=== PATIENT | female | born 1975 | race Caucasian/White ===

== ENCOUNTER → 2020-09-13 08:30 | Outpatient (BNVA) | payer OTHER, SELFPAY | PROVIDERS: PCP Internal Medicine; Referring Provider Internal Medicine; Visit Provider Surgery | DX: E66.9 Obesity, unspecified (principal); Z68.36 Body mass index [BMI] 36.0-36.9, adult | CPT/HCPCS: 99202 ==

== ENCOUNTER 2020-09-14 08:43 | Outpatient (REF) | payer OTHER, SELFPAY ==
--- NOTE | ~2020-09-14 | XR_ITS ---
EXAMINATION: XR CHEST CLINICAL INFORMATION: Shortness of breath COMPARISON: None TECHNIQUE: 2 views of the chest were obtained. FINDINGS: No significant abnormality is noted involving the heart, lungs, mediastinum, bony thorax or soft tissues. XR/XR chest 2V IMPRESSION: Unremarkable examination.
--- NOTE | 2020-09-14 08:53 | ECG_ITS ---
Test Reason : SOB Blood Pressure : / mmHG Vent. Rate : 077 BPM Atrial Rate : 077 BPM P-R Int : 138 ms QRS Dur : 086 ms QT Int : 382 ms P-R-T Axes : 045 030 034 degrees QTc Int : 432 ms Normal sinus rhythm Normal ECG No previous ECGs available Referred By: Michelle Mc Electronically Signed By:TINO MONTERO
[2020-09-14 09:21] LABS: MANUAL DIFF FLAG NO
[2020-09-14 09:24] LABS: Basophils Absolute Auto 0.1 X10*3/uL (0.0-0.2); Basophils Percent Auto 0.7 % (0-2); Eosinophils Absolute Auto 0.3 X10*3/uL (0.0-0.4); Eosinophils Percent Auto 4.3 % (0-4); Hemoglobin 14.1 g/dl (12.0-16.0); Imm Gran Abs Auto 0.05 X10*3/uL (0.00-0.03); Imm Gran Pct Auto 0.7 % (0.0-0.4); Lymphocytes Absolute Auto 1.7 X10*3/uL (1.2-4.9); Lymphocytes Percent Auto 22.5 % (20-40); Mean Corpuscular Hemoglobin 29.2 pg (27.0-33.0); Mean Corpuscular Volume 91.1 fL (80-98); Mean Platelet Volume 11.1 fL (9.4-12.3); Monocytes Absolute Auto 0.5 X10*3/uL (0.1-1.2); Monocytes Percent Auto 5.9 % (2-11); Neutrophils Percent Auto 65.9 % (45-73); Platelet Count 258 X10*3/uL (160-400); Red Blood Count 4.83 X10*6/uL (4.20-5.50); Red Cell Distribution Width 13.4 % (11.0-16.0); White Blood Count 7.6 X10*3/uL (4.8-10.8)
[2020-09-14 09:53] LABS: Estimated Average Glucose 100 mg/dL; Hemoglobin A1c % 5.1 %
[2020-09-14 09:57] LABS: Alanine Aminotransferase 15 U/L (0-31); Albumin Level 4.2 g/dL (3.5-5.0); Alkaline Phosphatase 100 U/L (39-117); Anion Gap 12 (12-20); Aspartate Amino Transferase 11 U/L (5-31); Bilirubin Total 0.4 mg/dL (0.0-1.0); Blood Urea Nitrogen 10 mg/dL (9-16); C Reactive Protein 0.25 mg/dL (< or = 0.50); Calcium 9.4 mg/dL (8.4-10.2); Carbon Dioxide 26 mmol/L (22-29); Chloride 109 mmol/L (96-108); Cholesterol 211 mg/dL; Estimated Glomerular Filt Rate > 60; Glucose Fasting 102 mg/dL (60-99); HDL Cholesterol 37 mg/dL; Iron 79 mcg/dL (30-160); LDL Cholesterol Calculated 152 mg/dl; Percent Iron Saturation 28 % (15-50); Potassium 4.8 mmol/L (3.3-5.1); Sodium 142 mmol/L (135-145); Total Iron Binding Capacity 279 mcg/dL (228-428); Total Protein 7.1 g/dL (6.5-8.0); Triglycerides 114 mg/dL; Unsaturated Iron Binding 200 ug/dL
[2020-09-14 10:19] LABS: Thyroid Stimulating Hormone 0.62 uIU/mL (0.32-4.0); Vitamin D 25-OH Total 22.3 ng/mL (>30)
[2020-09-14 10:38] LABS: Vitamin B12 270 pg/mL (200-900)
[2020-09-17 16:27] LABS: Calcium (PTHI) 9.3 mg/dL (8.6-10.2); PTHI 45 pg/mL (14-64)
[2020-09-18 13:27] LABS: Zinc 68 mcg/dL (60-130)
[2020-09-19 14:56] LABS: Vitamin A 39 mcg/dL (38-98); Vitamin B1 <6 nmol/L (8-30)
== END 2020-09-14 08:44 | disposition home or self-care (01) ==
LOC: HO.XRAY 08:43
PROVIDERS: Visit Provider Surgery
DX: Z01.818 Encounter for other preprocedural examination (principal); R06.02 Shortness of breath; K91.2 Postsurgical malabsorption, not elsewhere classified; Z90.3 Acquired absence of stomach [part of]
CPT/HCPCS: 36415; 71046; 80053; 80061; 82306; 82607; 83036; 83540; 83970; 84425; 84443; 84590; 84630; 85025; 86140; 93005

== ENCOUNTER → 2020-09-25 08:10 | Outpatient (BNVA) | payer OTHER, SELFPAY | PROVIDERS: PCP Internal Medicine; Visit Provider Physician Assistant ==

== ENCOUNTER → 2020-09-26 08:55 | Outpatient (BNVA) | payer OTHER, SELFPAY | PROVIDERS: PCP Internal Medicine; Referring Provider Internal Medicine; Visit Provider Physician Assistant ==

== ENCOUNTER 2020-09-27 08:46 | Outpatient (REF) | payer OTHER, SELFPAY ==
[2020-09-28 12:22] LABS: H Pylori Breath Test DETECTED (NOT DETECTED)
== END 2020-09-27 08:47 | disposition home or self-care (01) ==
LOC: HO.LNP 08:46
PROVIDERS: Surgery; PCP Internal Medicine; Visit Provider Physician Assistant
DX: Z01.818 Encounter for other preprocedural examination (principal)
CPT/HCPCS: 83013; 99211

== ENCOUNTER → 2020-10-10 08:16 | Outpatient (BNVA) | payer OTHER, SELFPAY | PROVIDERS: PCP Internal Medicine; Visit Provider Dietitian, Registered | DX: E66.9 Obesity, unspecified (principal); Z68.35 Body mass index [BMI] 35.0-35.9, adult | CPT/HCPCS: 97802 ==

== ENCOUNTER 2020-10-19 10:01 | Outpatient (REF) | payer OTHER, SELFPAY ==
[2020-10-19 13:48] LABS: Vitamin D 25-OH Total 49.3 ng/mL (>30)
[2020-10-24 14:41] LABS: Vitamin B1 11 nmol/L (8-30)
== END 2020-10-19 10:02 | disposition home or self-care (01) ==
LOC: HO.LAB 10:01
PROVIDERS: PCP Internal Medicine; Visit Provider Surgery
DX: Z01.818 Encounter for other preprocedural examination (principal); E51.9 Thiamine deficiency, unspecified; E55.9 Vitamin D deficiency, unspecified; E66.9 Obesity, unspecified; F17.200 Nicotine dependence, unspecified, uncomplicated; Z68.35 Body mass index [BMI] 35.0-35.9, adult; Z79.899 Other long term (current) drug therapy; Z71.3 Dietary counseling and surveillance
CPT/HCPCS: 36415; 82306; 84425; 99212

== ENCOUNTER 2020-11-05 15:00 | Emergency (ER) | payer OTHER, SELFPAY ==
--- NOTE | ~2020-11-05 | XR_ITS ---
EXAMINATION: XR LUMBOSACRAL SPINE CLINICAL INFORMATION: Lower back pain. COMPARISON: None TECHNIQUE: Three views of the lumbosacral spine. FINDINGS: There is normal lumbar lordosis. The vertebral heights, alignment and is normal. There is loss of L3-4, L4-5 and L5-S1 disc heights. The SI joints are symmetrical and normal. No visible acute fracture, dislocation or lytic process seen. There is mild endplate spondylosis L2-3 through L5-S1 disc levels. No visible acute fracture or dislocation seen. XR/XR lumbar spine 2-3V IMPRESSION: Mild degenerative disc changes L3-4 through L5-S1 disc levels. There is mild endplate spondylosis dorsal spine.
[2020-11-05 15:29] VITALS: BP 143/91; PULSE 79; RESP 16; TEMP 36.7; O2SAT 98; BMI 34.6
--- NOTE | 2020-11-05 18:57 | ED.BACK ---
HPI - Back Pain/Injury General Chief Complaint: Back Pain/Injury Stated Complaint: BACK INJ AT WORK Time Seen by Provider: 11/05/20 19:33 Source: patient Mode of arrival: ambulatory Limitations: no limitations History of Present Illness HPI Narrative: 44-year-old female presents with lower lumbar pain after lifting heavy boxes while at work. She does not describe any symptoms indicating cauda equina, but states that the pain radiates down to her left leg into her toes. MD elicited complaint: back pain Onset (ago): week(s) (1) Timing: constant Severity: moderate Similar Symptoms Previously: No Quality: aching, spasming and throbbing Location: lumbar spine Radiation: left upper leg and left leg below the knee Exacerbating factors: movement and lifting Relieving factors: none Associated symptoms: denies other symptoms Treatments prior to arrival: NSAIDS Work related injury: Yes Related Data Home Medications Medication Instructions Recorded Confirmed acetaminophen 500 mg tablet 500 mg PO Q6H PRN 09/13/20 10/19/20 albuterol sulfate 90 mcg/actuation 2 puff INHALATION Q4H PRN 09/13/20 10/19/20 aerosol inhaler fluticasone propionate 50 2 spray INTRANASAL DAILY 09/13/20 10/19/20 mcg/actuation nasal spray,suspension lisinopril 10 mg tablet 10 mg PO DAILY 09/13/20 10/19/20 ondansetron HCl 4 mg tablet 400f8 mg PO Q8H PRN 09/13/20 10/19/20 tramadol 50 mg tablet 50 mg PO Q6H PRN 09/13/20 10/19/20 trazodone 100 mg tablet 100 mg PO BEDTIME PRN 09/13/20 10/19/20 Previous Rx's Medication Instructions Recorded thiamine HCl (vitamin B1) 100 mg 100 mg PO DAILY #30 tab 10/19/20 tablet cyclobenzaprine 10 mg tablet 10 mg PO TID PRN #14 tab 11/05/20 Allergies Allergy/AdvReac Type Severity Reaction Status Date / Time aspirin [ASA] Allergy Unknown DIFF Verified 11/05/20 20:14 BREATHING Penicillins [PENICILLINS] Allergy Unknown DIFF Verified 11/05/20 20:14 BREATHING Review of Systems Review of Systems: Constitutional: No Weight loss, No Fever, No Chills, ENT/Mouth: No Hearing loss, No Ear Pain, No Nasal Congestion, No Sinus Pain, No Hoarseness, No sore throat, No Rhinorrhea, No Swallowing Difficulty Cardiovascular: No Chest Pain, No SOB Respiratory: No Cough, No Dyspnea Gastrointestinal: No Nausea, No Vomiting, No Diarrhea, No abdominal Pain, No Hematochezia, No Melena Genitourinary: No Dysuria, No Urinary Frequency, No Hematuria, No Urinary Incontinence, Musculoskeletal: positive back pain Skin: No Skin Lesions, No rash Neuro: No Weakness, No Numbness, No Paresthesias, no loss of bowel or bladder incontinence, no saddle anesthesia Yes all other systems are reviewed and are negative [facility] Past Medical History Attestation statement: The following information was validated with the patient. Source: old records reviewed Medical History Asthma Depression History of breast cancer History of cerebrovascular accident (CVA) in adulthood History of uterine cancer HTN (hypertension) Hypercholesterolemia Hypothyroidism Surgical History History of endoscopy History of total abdominal hysterectomy History of tubal ligation Hx of breast surgery Hx of colonoscopy Family History Family History Mother Hypertension Thyroid condition Father Diabetes Hypertension Mental and behavioral problem Heart problem Sister No problems noted. Sister No problems noted. Sister No problems noted. Sister No problems noted. Sister No problems noted. Sister No problems noted. Brother No problems noted. Brother No problems noted. Brother No problems noted. Brother No problems noted. Brother No problems noted. Brother No problems noted. Brother No problems noted. Brother No problems noted. Brother No problems noted. Brother No problems noted. Brother No problems noted. Son Asthma Son Asthma Daughter Thyroid condition Daughter No problems noted. Social History Social History Alcohol intake: former Patient Tobacco Use Status: Current everyday Tobacco user Cigarettes Per Day: 1 Years Smoked: 32 Advance Directives: No Physical Exam Vital Signs: Vital Signs: Last Vital Signs Temp 98.0 F 11/05/20 15:29 Pulse 75 11/05/20 20:00 Resp 16 11/05/20 20:00 BP 139/75 11/05/20 20:00 Pulse Ox 96 11/05/20 20:00 Body Mass Index 34.6 Appearance: Alert. Oriented X3. No acute distress. Eyes: Pupils equal, round and reactive to light. ENT: Pharynx normal. Neck: Normal inspection. Neck supple. No vertebral tenderness, no spinal tenderness, no step-offs noted. CVS: Normal heart rate and rhythm. Pulses normal. Respiratory: No respiratory distress. Breath sounds normal. Abdomen: Soft and nontender. Musculoskeletal: Palpable muscle spasms to lower lumbar. Skin: Skin warm and dry. Normal skin color. Normal skin turgor. Extremities: No lower extremity edema. Strength 5/5 to all extremities. Gait well balanced well coordinated. Neuro: No motor deficit. No sensory deficit. Cranial nerves 2-12 intact. Course Course Course Narrative: 44-year-old female presents with lumbar pain with sciatica from a lifting injury while at work. Will order x-rays. No indication of cauda equina, neurovascularly intact, brisk capillary with equal pedal pulses. Lumbar x-rays are negative for acute findings. Will treat with muscle relaxers and have patient follow up with work connection. Patient verbalized understanding of and agrees to plan of care discharge home. MDM - Back Pain/Injury Differential Diagnosis Differential diagnosis: Likely lumbar radiculopathy, sciatica and strain of lumbar region Medical Records Attestation: I reviewed the patient's medical records. Imaging Data Lumbar x-ray: Attestation: I personally reviewed and interpreted this imaging study as follows: Radiologist's impression: EXAMINATION: XR LUMBOSACRAL SPINE CLINICAL INFORMATION: Lower back pain. COMPARISON: None TECHNIQUE: Three views of the lumbosacral spine. FINDINGS: There is normal lumbar lordosis. The vertebral heights, alignment and is normal. There is loss of L3-4, L4-5 and L5-S1 disc heights. The SI joints are symmetrical and normal. No visible acute fracture, dislocation or lytic process seen. There is mild endplate spondylosis L2-3 through L5-S1 disc levels. No visible acute fracture or dislocation seen. XR/XR lumbar spine 2-3V IMPRESSION: Mild degenerative disc changes L3-4 through L5-S1 disc levels. There is mild endplate spondylosis dorsal spine. Discharge Plan Discharge Clinical Impression: Strain of lumbar region Patient Disposition: Home, Self-Care Instructions: Low Back Strain (ED), R.I.C.E. Treatment (ED), Lower Back Exercises (ED) Additional Instructions: You were evaluated for a injury sustained at work. You have spondylosis, lumbar strain and muscle spasms. Your x-rays are negative for fracture. Please use cyclobenzaprine as needed for muscle spasms. This medication is a muscle relaxer. Uses medication cautiously as this may cause drowsiness, decreased reaction time, an increased risk for falls. Do not drive or operate machinery while taking this medication. Follow-up with primary care provider and/or work connection as needed. Thank you for choosing this emergency department for evaluation. Please follow-up with primary care physician as needed. Return to the emergency department for any new, concerning, or worsening symptoms. Prescriptions: New cyclobenzaprine 10 mg tablet 10 mg PO TID PRN (Reason: muscle spasm) Qty: 14 RF: 0 No Action lisinopril 10 mg tablet 10 mg PO DAILY RF: 0 fluticasone propionate 50 mcg/actuation spray,suspension 2 spray intranasal DAILY RF: 0 albuterol sulfate 90 mcg/actuation HFA aerosol inhaler 2 puff inhalation Q4H PRN (Reason: wheezing) RF: 0 acetaminophen 500 mg tablet 500 mg PO Q6H PRN (Reason: pain) RF: 0 ondansetron HCl 4 mg tablet 400f8 mg PO Q8H PRN (Reason: nausea) RF: 0 tramadol 50 mg tablet 50 mg PO Q6H PRNRF: 0 trazodone 100 mg tablet 100 mg PO BEDTIME PRNRF: 0 thiamine HCl (vitamin B1) 100 mg tablet 100 mg PO DAILY Qty: 30 RF: 0 Stand Alone Forms: Work/School Release Interventions: ED Discharge Assessment Last Done: 11/05/20 20:46 Discharge Date/Time: 11/05/20 20:47
[2020-11-05 20:00] VITALS: BP 139/75; PULSE 75; RESP 16; O2SAT 96
[2020-11-05] MEDS: Cyclobenzaprine HCl 10 MG TABLET PO (20:14)
[2020-11-05] MEDS: Ketorolac Tromethamine 60 MG/2 ML VIAL IM (20:15)
== END 2020-11-05 20:47 | disposition home or self-care (01) ==
PROVIDERS: Emergency Provider Internal Medicine; PCP Internal Medicine
DX: S39.012A Strain of muscle, fascia and tendon of lower back, initial encounter (principal); X50.0XXA Overexertion from strenuous movement or load, initial encounter; Y93.9 Activity, unspecified; Y92.9 Unspecified place or not applicable; Y99.0 Civilian activity done for income or pay; F17.200 Nicotine dependence, unspecified, uncomplicated; Z71.6 Tobacco abuse counseling; Z79.899 Other long term (current) drug therapy
CPT/HCPCS: 72100; 96372; 99284; J1885

== ENCOUNTER → 2020-11-14 08:12 | Outpatient (BNVA) | payer OTHER, SELFPAY | PROVIDERS: PCP Internal Medicine; Visit Provider Dietitian, Registered | DX: E66.9 Obesity, unspecified (principal) | CPT/HCPCS: 97803 ==

== ENCOUNTER → 2020-11-23 13:48 | Outpatient (BNVA) | payer OTHER, SELFPAY | PROVIDERS: PCP Internal Medicine; Visit Provider Surgery | DX: E66.9 Obesity, unspecified (principal); Z68.33 Body mass index [BMI] 33.0-33.9, adult | CPT/HCPCS: 99212 ==

== ENCOUNTER → 2020-12-12 09:56 | Outpatient (BNVA) | payer OTHER, SELFPAY | PROVIDERS: PCP Internal Medicine; Referring Provider Internal Medicine; Visit Provider Surgery | DX: E66.9 Obesity, unspecified (principal); Z68.33 Body mass index [BMI] 33.0-33.9, adult | CPT/HCPCS: 99212 ==

== ENCOUNTER 2021-01-11 14:46 | Outpatient (REF) | payer OTHER, SELFPAY ==
[2021-01-13 11:08] LABS: H Pylori Breath Test Negative (Negative)
== END 2021-01-11 14:47 | disposition home or self-care (01) ==
LOC: HO.LNP 14:46
PROVIDERS: Surgery; PCP Internal Medicine; Referring Provider Internal Medicine; Visit Provider Physician Assistant Surgical
DX: Z01.818 Encounter for other preprocedural examination (principal); A04.8 Other specified bacterial intestinal infections; E66.9 Obesity, unspecified; Z68.31 Body mass index [BMI] 31.0-31.9, adult; F17.210 Nicotine dependence, cigarettes, uncomplicated
CPT/HCPCS: 83013; 99212

== ENCOUNTER → 2021-02-05 08:12 | Outpatient (BNVA) | payer OTHER, SELFPAY | PROVIDERS: PCP Internal Medicine; Referring Provider Surgery; Visit Provider Dietitian, Registered ==

== ENCOUNTER → 2021-02-26 08:07 | Outpatient (BNVA) | payer OTHER, SELFPAY | PROVIDERS: PCP Internal Medicine; Visit Provider Dietitian, Registered ==

== ENCOUNTER 2021-02-27 08:15 | Outpatient (REF) | payer OTHER, SELFPAY ==
--- NOTE | ~2021-02-27 | US_ITS ---
EXAMINATION: US COMPLETE ABDOMEN WITH LIVER ELASTOGRAPHY CLINICAL INFORMATION: Obesity COMPARISON: None. TECHNIQUE: Real-time imaging of the abdominal viscera. Noninvasive ultrasound liver fibrosis assessment is performed using Dianna ElastPQ point quantification shear wave elastography (pSWE) with a C5-2 MHz transducer. Multiple elastography samples are obtained. FINDINGS: PANCREAS: Normal. The visualized pancreatic head and body are normal in appearance. The remainder of the pancreas is obscured from visualization by the overlying bowel gas. ABDOMINAL AORTA: The proximal, middle, and distal aortic segments are normal in caliber. INFERIOR VENA CAVA: Visualized portions are normal. LIVER: Normal in morphology and size but diffuse increased echogenicity favoring hepatic steatosis. No focal lesion or intrahepatic biliary duct dilatation. The right lobe measures 15.5 cm in length. The left lobe measures 11.3 cm in length. Portal flow is hepatopedal Shear wave liver elastography median stiffness is 1.42 m/s (reference: normal median stiffness is 1.3 m/s or less). IQR/median stiffness to assess sampling precision is 0.2 (reference: good quality data set is IQR/median stiffness of 0.15 or less). GALLBLADDER: Normal. The gallbladder is physiologically distended without evidence of stones, sludge, polyps, wall thickening or pericholecystic fluid. COMMON BILE DUCT: Normal in caliber measuring 0.3 cm in diameter. RIGHT KIDNEY: Questionable tiny stone the millimeters with out obstruction versus a dystrophic calcification. No focal parenchymal lesions. The kidney measures 11.6 cm in maximum dimension. LEFT KIDNEY: Normal. No hydronephrosis. No renal calculi or focal parenchymal lesions. The kidney measures 11.7 cm in maximum dimension. SPLEEN: Normal. The spleen measures 10.7 cm in maximum dimension. FREE FLUID: None. US/US abdomen comp w elastography IMPRESSION: 1. Changes on Elastography rules out compensated advanced chronic liver disease. 2. Changes of hepatic steatosis. No discrete lesion. REFERENCE: Society of Radiologists in Ultrasound Liver Stiffness Thresholds (2020): LIVER STIFFNESS THRESHOLDS: *Liver Stiffness equal or less than 1.3 m/s: High probability of being normal. *Liver Stiffness less than 1.7 m/s: In the absence of other known clinical signs, rules out compensated advanced chronic liver disease. *Liver Stiffness 1.7-2.1 m/s: Suggestive of compensated advanced chronic liver disease but need further test for confirmation. *Liver Stiffness over 2.1 m/s: Rules in compensated advanced chronic liver disease. *Liver Stiffness over 2.4 m/s: Suggestive of clinically significant portal hypertension. QUALITY OF DATA SET: *IQR/Median value equal or less than 0.15 implies a quality data set. *IQR/Median value over 0.15 implies a poor quality data set. SIGNIFICANT CHANGE FROM PRIOR EXAM: Significant change if liver stiffness measurement is 10% or greater from prior exam. OTHER CONSIDERATIONS: The stage of liver fibrosis may be overestimated in the setting of acute hepatitis, liver inflammation, elevated liver function tests, hepatic vascular congestion, obstructive cholestasis, non-fasting state, and infiltrative diseases such as amyloidosis and lymphoma. In some patients with NAFLD, the liver stiffness thresholds for compensated advanced chronic liver disease may be lower. In causes other than viral hepatitis and NAFLD, liver stiffness thresholds are not well established.
== END 2021-02-27 08:16 | disposition home or self-care (01) ==
LOC: HO.US 08:15
PROVIDERS: Visit Provider Physician Assistant Surgical
DX: E66.9 Obesity, unspecified (principal); E78.00 Pure hypercholesterolemia, unspecified; E03.9 Hypothyroidism, unspecified; F17.210 Nicotine dependence, cigarettes, uncomplicated; U07.0 Vaping-related disorder; Z68.31 Body mass index [BMI] 31.0-31.9, adult; Z88.6 Allergy status to analgesic agent; Z88.0 Allergy status to penicillin; Z79.899 Other long term (current) drug therapy; Z82.49 Family history of ischemic heart disease and other diseases of the circulatory system; Z81.8 Family history of other mental and behavioral disorders; Z83.3 Family history of diabetes mellitus; Z53.29 Procedure and treatment not carried out because of patient's decision for other reasons
CPT/HCPCS: 76705; 76981; 99212

== ENCOUNTER → 2021-03-05 08:06 | Outpatient (BNVA) | payer OTHER, SELFPAY | PROVIDERS: PCP Internal Medicine; Visit Provider Dietitian, Registered | DX: E66.9 Obesity, unspecified (principal); Z68.30 Body mass index [BMI] 30.0-30.9, adult | CPT/HCPCS: 97803 ==

== ENCOUNTER → 2021-03-11 13:32 | Outpatient (BNVA) | payer OTHER, SELFPAY | PROVIDERS: PCP Internal Medicine; Referring Provider Internal Medicine; Visit Provider Surgery ==

== ENCOUNTER → 2021-03-14 11:45 | Outpatient (BNVA) | payer OTHER, SELFPAY | PROVIDERS: PCP Internal Medicine; Visit Provider Surgery ==

== ENCOUNTER 2021-03-29 08:12 | Outpatient (REF) | payer OTHER, SELFPAY ==
--- NOTE | ~2021-03-29 | FL_ITS ---
EXAMINATION: XR FLUOROSCOPY UPPER GI WITH AIR CLINICAL INFORMATION: Obesity COMPARISON: None TECHNIQUE: Upper GI was performed using thin and thick barium and effervescent granules. FINDINGS: Esophageal motility is normal. No esophageal reflux or hernia is seen. The stomach and duodenum are normal appearing. No fold thickening, ulcer, mass or stricture. FLUOROSCOPY TIME: 0.6 minutes DOSE AREA PRODUCT: 7.8 heck per centimeter squared. IMAGES: 16 saved fluoroscopic images. FL/FL upper GI w air IMPRESSION: Unremarkable examination.
== END 2021-03-29 08:13 | disposition home or self-care (01) ==
LOC: HO.XRAY 08:12
PROVIDERS: Visit Provider Physician Assistant Surgical
DX: E66.9 Obesity, unspecified (principal)
CPT/HCPCS: 74246

== ENCOUNTER → 2021-04-19 09:58 | Outpatient (BNVA) | payer OTHER, SELFPAY | PROVIDERS: PCP Internal Medicine; Referring Provider Internal Medicine; Visit Provider Physician Assistant Surgical ==

== ENCOUNTER → 2021-05-01 10:00 | Outpatient (BNVA) | payer OTHER, SELFPAY | PROVIDERS: PCP Internal Medicine; Referring Provider Internal Medicine; Visit Provider Surgery | DX: E66.9 Obesity, unspecified (principal); I10 Essential (primary) hypertension; Z68.32 Body mass index [BMI] 32.0-32.9, adult | CPT/HCPCS: 99212 ==

== ENCOUNTER → 2021-05-10 12:57 | Outpatient (BNVA) | payer OTHER, SELFPAY | PROVIDERS: PCP Internal Medicine; Referring Provider Internal Medicine; Visit Provider Surgery ==

== ENCOUNTER 2021-05-14 06:20 | Inpatient (IN) | payer OTHER, SELFPAY ==
[2021-05-08 07:54] LABS: MANUAL DIFF FLAG NO
[2021-05-08 08:12] LABS: Basophils Percent Auto 0.5 % (0-2); Eosinophils Absolute Auto 0.2 X10*3/uL (0.0-0.4); Eosinophils Percent Auto 3.7 % (0-4); Hemoglobin 13.9 g/dl (12.0-16.0); Imm Gran Abs Auto 0.02 X10*3/uL (0.00-0.03); Imm Gran Pct Auto 0.3 % (0.0-0.4); Lymphocytes Absolute Auto 1.6 X10*3/uL (1.2-4.9); Lymphocytes Percent Auto 24.8 % (20-40); Mean Corpuscular HGB Conc 32.3 g/dl (31.0-35.0); Mean Corpuscular Hemoglobin 29.4 pg (27.0-33.0); Mean Corpuscular Volume 91.1 fL (80.0-98.0); Mean Platelet Volume 10.9 fL (9.4-12.3); Monocytes Absolute Auto 0.4 X10*3/uL (0.1-1.2); Monocytes Percent Auto 6.7 % (2-11); Platelet Count 232 X10*3/uL (160-400); Red Blood Count 4.72 X10*6/uL (4.20-5.50); Red Cell Distribution Width 13.7 % (11.0-16.0); White Blood Count 6.3 X10*3/uL (4.8-10.8)
[2021-05-08 08:22] LABS: INTERNATIONAL NORM RATIO 1.2 (0.9-1.1); Prothrombin Time 13.1 SEC (9.9-13.0)
[2021-05-08 08:24] LABS: Partial Thromboplastin Time 37.1 SEC (24.1-38.0)
[2021-05-08 08:27] LABS: Estimated Average Glucose 100 mg/dL; Hemoglobin A1c % 5.1 %
[2021-05-08 08:44] LABS: Alanine Aminotransferase 18 U/L (0-31); Alkaline Phosphatase 87 U/L (39-117); Anion Gap 12 (12-20); Aspartate Amino Transferase 12 U/L (5-31); Bilirubin Total 0.7 mg/dL (0.0-1.0); Blood Urea Nitrogen 15 mg/dL (9-16); C Reactive Protein 0.65 mg/dL (< or = 0.50); Calcium 9.5 mg/dL (8.4-10.2); Carbon Dioxide 26 mmol/L (22-29); Chloride 106 mmol/L (96-108); Cholesterol 212 mg/dL; Estimated Glomerular Filt Rate > 60; Glucose Random 98 mg/dL (60-115); HDL Cholesterol 40 mg/dL; LDL Cholesterol Calculated 148 mg/dl; Potassium 4.1 mmol/L (3.3-5.1); Sodium 140 mmol/L (135-145); Total Protein 6.9 g/dL (6.5-8.0); Triglycerides 121 mg/dL
[2021-05-08 09:03] LABS: Insulin 16 uU/mL (2-29); TSH reflex Free T4 0.84 uIU/mL (0.32-4.0)
[2021-05-08 11:29] VITALS: BMI 31.9
--- NOTE | 2021-05-11 21:59 | MHC.SHP ---
Pre-Procedural Eval Section A Date of Service: 05/11/21 The patient is an INPATIENT: Yes The History & Physical has been completed within 30 days and I have reviewed it.: Yes Section B Chief Complaint: obesity Relevant Family History (Specify if Yes): No Relevant Social History: None Present Medications: None Medical History: No relevant PMH History of Previous Operations: No relevant previous surgery Allergies: Allergies Allergy/AdvReac Type Severity Reaction Status Date / Time aspirin [ASA] Allergy Unknown DIFF Verified 05/08/21 11:27 BREATHING Penicillins [PENICILLINS] Allergy DIFF Verified 05/08/21 11:27 BREATHING Review of Systems Sugical H&P ROS: Negative: Constitution, Cardiovascular, Respiratory, Neurological, Psychiatric, Hem-Onc, Allergic/Immunologic, Gastrointestinal, Genitourinary, Musculoskeletal, Integumentary, Endocrine and Eyes/Ears/Nose/Throat Exam Surgical H&P Exam: Normal: HEENT, Normal: Heart, Normal: Lungs, Normal: Extremities, Normal: Abdomen, Normal: Skin and Normal: Neurological Plan Diagnosis/Plan: Unchanged I have reviewed the history and physical and performed a pertinent physical examination on my patient. No changes have occurred unless specified.
[2021-05-13 12:43] LABS: COVID-19 Test Negative (Negative)
[2021-05-14] VITALS (12 sets, daily range): BP systolic 126–168; BP diastolic 78–92; PULSE 75–109; RESP 14–19; TEMP 36.7–37.3; O2SAT 94–100
[2021-05-14] MEDS: Lactated Ringers 1,000 ML 999 ML IV (06:47)
--- NOTE | 2021-05-14 07:00 | HO.ANESPROP2 ---
HPI - Anesthesia Eval Consult details Narrative: Morbid Obesity COUNTS INCLUDE 234 BEDS AT THE [facility] Active Problems Active Problems: All Active Problems (Updated 05/08/21 @ 11:28 by Lola Grullon RN) Obesity (Acute) Preoperative examination (Acute) Shortness of breath (Acute) BMI 36.0-36.9,adult (Acute) Vitamin D deficiency (Acute) Severe episode of recurrent major depressive disorder (Acute) H. pylori infection (Acute) Vitamin B1 deficiency (Acute) BMI 35.0-35.9,adult (Acute) BMI 33.0-33.9,adult (Acute) Obesity (BMI 30.0-34.9) (Acute) BMI 31.0-31.9,adult (Acute) BMI 32.0-32.9,adult (Acute) History of cerebrovascular accident (CVA) in adulthood (Acute) Hypercholesterolemia (Acute) History of breast cancer (Acute) Asthma (Acute) HTN (hypertension) (Acute) Past Medical History Medical History (Updated 05/08/21 @ 11:28 by Lola Grullon RN) Asthma Depression History of breast cancer History of cerebrovascular accident (CVA) in adulthood History of uterine cancer HTN (hypertension) Hypercholesterolemia Hypothyroidism PONV (postoperative nausea and vomiting) Family History Family History Mother Hypertension Thyroid condition Father Diabetes Hypertension Mental and behavioral problem Heart problem Sister No problems noted. Sister No problems noted. Sister No problems noted. Sister No problems noted. Sister No problems noted. Sister No problems noted. Brother No problems noted. Brother No problems noted. Brother No problems noted. Brother No problems noted. Brother No problems noted. Brother No problems noted. Brother No problems noted. Brother No problems noted. Brother No problems noted. Brother No problems noted. Brother No problems noted. Son Asthma Son Asthma Daughter Thyroid condition Daughter No problems noted. Family history of problems with anesthesia: No Surgical History Surgical History History of endoscopy History of total abdominal hysterectomy History of tubal ligation Hx of breast surgery Hx of colonoscopy History of Problems with Anesthesia: No Social History Social History Are you a primary rn acute care to a significant other at home: No Do you presently have visiting nurse or other home services: No Alcohol intake: former Patient Tobacco Use Status: Current everyday Tobacco user Tobacco use type: Smokeless Tobacco Cigarettes Per Day: 1 Years Smoked: 26 e-Cigarette/Vaping Use: Currently Using Use of substances other than those prescribed or required for medical reasons: No Have you been hit, kicked, punched, or otherwise hurt by someone within the past year? If so, by whom?: No Are you DNR?: No Advance Directives: No Advance Directives Information Provided: Yes (Mailed with Pre-op Instructions) Advance Directives on File: No Recently lost weight without trying: No How much weight loss: 34pounds or more Eating poorly because of decreased appetite: No Nutrition screen score: 4 Nutrition Risks: No Nutritional Risk Patient : No FDLMP: Hyst : No Poor oral hygiene: No Meds Allergies Allergy/AdvReac Type Severity Reaction Status Date / Time aspirin [ASA] Allergy Unknown DIFF Verified 05/08/21 11:27 BREATHING Penicillins [PENICILLINS] Allergy DIFF Verified 05/08/21 11:27 BREATHING Active Medications: Current Medications Levofloxacin (Levaquin) 500 mg in 100 mls @ 100 mls/hr IV PREOP ONE Stop: 05/14/21 07:18 Lactated Ringer's (Lr) 1,000 mls @ 999 mls/hr IV .Q1H1M [facility] Stop: 05/14/21 07:30 Last Admin: 05/14/21 06:47 Dose: 999 mls/hr Documented by: Lactated Ringer's (Lr) 1,000 mls @ 50 mls/hr IVCONT .Q20H [facility] Acetaminophen (Ofirmev) 1,000 mg in 100 mls @ 400 mls/hr IV PREOP ONE Stop: 05/14/21 07:13 Home Medications Medication Instructions Recorded Confirmed Last Taken Type acetaminophen 500 mg tablet 500 mg PO Q6H PRN 09/13/20 05/08/21 Unknown History albuterol sulfate 90 mcg/actuation 2 puff INHALATION Q4H PRN 09/13/20 05/08/21 Unknown History aerosol inhaler fluticasone propionate 50 2 spray INTRANASAL DAILY 09/13/20 05/08/21 Unknown History mcg/actuation nasal spray,suspension lisinopril 10 mg tablet 10 mg PO DAILY 09/13/20 05/08/21 Unknown History Exam Exam Date and Time: May 14, 2021 0700 Height,Weight and Vital Signs: Height 5 ft 7 in Weight 92.533 kg Last Vital Signs Temp 98.2 F 05/14/21 06:28 Pulse 88 05/14/21 06:28 Resp 18 05/14/21 06:28 BP 145/80 H 05/14/21 06:28 Pulse Ox 98 05/14/21 06:28 Pertinent Lab Results Pertinent Lab Results: Laboratory Tests 05/08/21 05/08/21 05/08/21 07:50 07:50 07:50 WBC 6.3 RBC 4.72 Hgb 13.9 Hct 43.0 MCV 91.1 MCH 29.4 MCHC 32.3 RDW 13.7 Plt Count 232 MPV 10.9 Immature Gran % (Auto) 0.3 Neut % (Auto) 64.0 Lymph % (Auto) 24.8 [place] % (Auto) 6.7 Eos % (Auto) 3.7 Baso % (Auto) 0.5 Lymph # (Auto) 1.6 [place] # (Auto) 0.4 Eos # (Auto) 0.2 Baso # (Auto) 0.0 Abs Immat Gran (auto) 0.02 Absolute Neuts (auto) 4.0 Absolute Nucleated RBC 0.000 Nucleated RBC % (auto) 0.0 PT 13.1 H INR 1.2 H APTT 37.1 Sodium 140 Potassium 4.1 Chloride 106 Carbon Dioxide 26 Anion Gap 12 BUN 15 Creatinine 0.67 Estim Creat Clear Calc TNP Estimated GFR > 60 Random Glucose 98 Estimat Average Glucose Hemoglobin A1c % Insulin Level 16 Calcium 9.5 Total Bilirubin 0.7 AST 12 ALT 18 Alkaline Phosphatase 87 C-Reactive Protein 0.65 H Total Protein 6.9 Albumin 4.0 Triglycerides 121 Cholesterol 212 LDL Cholesterol, Calc 148 HDL Cholesterol 40 TSH 0.84 COVID-19 ([facility]) COVID-19 Clin Com Blood Type Antibody Screen 05/08/21 05/08/21 05/13/21 07:50 07:50 12:10 WBC RBC Hgb Hct MCV MCH MCHC RDW Plt Count MPV Immature Gran % (Auto) Neut % (Auto) Lymph % (Auto) [place] % (Auto) Eos % (Auto) Baso % (Auto) Lymph # (Auto) [place] # (Auto) Eos # (Auto) Baso # (Auto) Abs Immat Gran (auto) Absolute Neuts (auto) Absolute Nucleated RBC Nucleated RBC % (auto) PT INR APTT Sodium Potassium Chloride Carbon Dioxide Anion Gap BUN Creatinine Estim Creat Clear Calc Estimated GFR Random Glucose Estimat Average Glucose 100 Hemoglobin A1c % 5.1 Insulin Level Calcium Total Bilirubin AST ALT Alkaline Phosphatase C-Reactive Protein Total Protein Albumin Triglycerides Cholesterol LDL Cholesterol, Calc HDL Cholesterol TSH COVID-19 ([facility]) Negative COVID-19 Clin Com See Note Blood Type O Positive Antibody Screen NEGATIVE Airway Mallampati Class: II TM Dist: >3cm Neck ROM: Full Loose/Missing/Broken Teeth: No Heart: [id number] Lungs: cta b/l Assessment and Plan Assessment Anesthesia Assessment: Anesthesia Plan Discussed and Chart Reviewed Final Anesthetic Review Family History of Problems with Anesthesia: No History of Problems with Anesthesia: No NPO: Yes ASA Class: III Final Preanesthetic Review: No Changes in Pt Med Stat, Meds/Allgs Chart Reviewed, Consent Obtained/Reviewed and Anes Risks/Benef Reviewed Patient Risk: Intermediate Procedure Risk: Intermediate Assessment/Block/Sedation in SS: Assess/Block/Sedation-SS Anesthetic Plan Anesthetic Plan: GA and Agree w/ Assess. and Plan Disposition: Standard PACU
[2021-05-14] MEDS: levoFLOXacin/D5W 500 MG/100 ML PIGGYBACK 100 MG IV (07:55)
--- NOTE | 2021-05-14 10:46 | P.BOP_ITS ---
Brief Operative Note Date of Service: 05/14/21 Pre-op diagnosis: Severe obesity with comorbidities (see below) Post-op diagnosis: same Procedure: INITIAL PATIENT BMI ON PRESENTATION AT OUR OFFICE: 36.2 kg/m2 LAST BMI BEFORE SURGERY: 31.6 kg/m2 COMORBIDITIES: CVA, hypertension, GERD, asthma, back pain, history of breast cancer, liver steatosis ?The patient presented to the Weight Management Program with significant obesity that was negatively impacting the patient's comorbidities as listed above.? The program is a phased program with a special focus on preoperative medical weight management to promote substantial weight loss and prepare the patients for the second phase of the program: bariatric surgery. The patient participated in an intensive weekly lifestyle ?intervention and exercise program during which the patient ?has lost between the initial office visit and the last preoperative visit 22.6lbs, or 10.07% of initial actual body weight. It was deemed appropriate for the patient to now have bariatric surgery. In light of the current Covid-19 pandemic and the well documented strong association of obesity and increased risk of worse outcomes if infected with Covid-19 (REFERENCES: https://pubmed.ncbi.nlm.nih.gov/13604141/ ,? https://pubmed.ncbi.nlm.nih.gov/50469843/ ), any delay in undergoing bariatric surgery may lead to the patient's worsening health condition and increased?risk of more severe Covid-19 disease if infected. In addition a recent?study from [facility] published in [facility] on 03/04/2021 ([email or web address]) found that, among patients with obesity, substantial weight loss achieved with surgery was associated with improved outcomes of COVID-19 infection. The findings suggest that obesity can be a modifiable risk factor for the severity of COVID-19 infection. In addition, the patient met the BMI-criteria for bariatric surgery based on the BMI on initial presentation. The patient should not be penalized for achieving such weight loss because ?it is not sustainable long-term without surgical intervention and it was achieved in preparation for bariatric surgery ?under my direction and based on my published research ([email or web address]).[email or web address] and? https://www.soard.org/article/[email or web address](00)51330-X/pdf ) ?that a 10% preoperative weight loss improves long-term weight loss after surgery and reduces perioperative complications.? Insurance carriers such as [facility] have endorsed my recommendations ?and have included in their policies criteria to include a 10% preoperative weight loss requirement. PROCEDURE: Esophago-gastroscopy, laparoscopic repair of incarcerated diaphragmatic hernia, laparoscopic lysis of adhesions, laparoscopic sleeve gastrectomy and laparoscopic gastropexy INDICATIONS: This is a 45 year-old female who was electively scheduled for laparoscopic, possibly open sleeve gastrectomy. The risks and complications of the procedure were discussed with the patient in advance, particularly the possibility of ; pulmonary embolism; staple line leak; bleeding; GERD; cardiac, pulmonary, or renal complications; as well as long-term problems such as insufficient weight loss, vitamin deficiency, strictures, or ulcers. The patient understood all the risks, and was in agreement to proceed with surgery. DESCRIPTION OF PROCEDURE: After informed consent was obtained from the patient, the patient was given preoperative antibiotics, and was transferred to the operating room. After successful induction of general anesthesia, pneumatic compression devices were placed on both lower extremities. An upper endoscopy was performed next. The oropharynx and esophagus appeared to be within normal limits. There was no diaphragmatic hernia present consistent with the findings of the preoperative upper GI. The stomach was entered. Then after all fluid and air were suctioned and the stomach was fully decompressed, the scope was withdrawn and secured in the mid esophagus. The patient was then prepped and draped in the usual sterile manner, and abdominal access was established at the right upper quadrant with the Damian technique. A 12 mm blunt port was inserted, and the abdomen was insufflated with CO2 to a pressure of 15 mmHg. Under direct visualization, additional ports were placed, specifically two 5 mm Versi-step ports to the left upper quadrant, and a 5 mm Versi-Step port to the right upper quadrant. 1% lidocaine plain was used to infiltrate all port sites as well as all fascia defects. Using the EndoClose suture passer device, I placed a #1 Polysorb tie across the falciform ligament in order to retract it up against the abdominal wall and prevent injury of the ligament with our instruments during the procedure. Following that, the patient was placed in a steep reverse Trendelenburg position. An additional 5 mm port was placed to the right flank for the Mediflex retractor that was used to retract the left lobe of the liver. The gastro-esophageal fat pad was opened with the ultrasonic device (Thunderbeat, Olympus) and the anterior esophagus and hiatus were exposed. The angle of His was opened with the ultrasonic device the fundus of the stomach from any diaphragmatic and splenic attachments. I then opened the gastrocolic ligament between the transverse colon and the greater curvature of the stomach with the ultrasonic device to enter the lesser sac and facilitate the ligation of the short gastric vessels. I started at a mid-point along the greater curvature and using the Thunderbeat, all short gastric vessels were divided all the way to the angle of His until the left karla was completely dissected at its entirety. I then divided the gastro-colic ligament distally to a distance of about 3-4 cm proximal to the pylorus. There were extensive congenital adhesions between the pancreas and posterior gastric wall. Those were lysed completely with the ultrasonic device. Adhesiolysis took approximately 45 min to complete. The stomach was then divided transversely with one Endo MICHELLE-45 purple, one MICHELLE- 45 orange load and five MICHELLE-60 articulating orange loads using the AEON stapler and loads. Every effort was made that the gastric sleeve had a tubular shape and an even caliber throughout. Once the sleeve resection was completed, the staple line of the gastric sleeve was reinforced with Hemoclips. The resected stomach was retrieved without difficulty from the Damian port. A gastropexy was then performed in order to prevent postoperative GERD and partial gastric volvulus. Several interrupted 2.0 Surgidac sutures were placed between the sleeve's staple line and the previously divided greater omentum and gastro-colic ligament using the Endo-Stitch device. ?An upper endoscopy was performed. There was no narrowing at the GE junction. The scope was easily advanced all the way to the pylorus which was clearly visualized. There was no narrowing anywhere and the sleeve's caliber was even throughout. The sleeve's staple line was inspected and there was no evidence of ischemia, bleeding or dehiscence. At that point the gastroscope was withdrawn from the patient?s mouth while we were decompressing the bowel and the stomach from any remaining air. I looked into the lesser sac to see how the sleeve was situating and it was situating well. There was no bleeding from the staple line, spleen, or short gastric vessels. The Mediflex retractor was removed, and the undersurface of the liver was inspected and there was no bleeding. The patient was placed in supine position. I closed the fascial defect of the 12 mm port site with a figure of eight #1 Polysorb suture. Then 100 cc 0.25 % Marcaine plain with 10 mg of Dexamethasone were used to infiltrate the fascial closure as well as all skin incisions. At this point, the abdomen was deflated, all ports were removed under direct vision, and no bleeding was noted from any of the port sites. The skin incisions were irrigated with saline and were closed with 4-0 absorbable monofilament sutures. Steri-Strips and OpSites were used to cover all incisions. The patient was extubated and was transferred in stable condition to the recovery room for further care. I was present and performed all cordova parts of the procedure. Mr. Cardenas was the first line production supervisor. There were no residents to assist with this case. Thomas Lunsford MD, PhD, FACS ReplyForward Surgeon: Andrew Lunsford MD Anesthesia: GETA, local and other (TAP block) Was an Ballaster used for this Procedure?: Yes Ballaster: Gildardo Cardenas Estimated blood loss (mL): 10 IV fluids (mL): 2,500 Urine output (mL): 0 (No Taylor to record) Pathology: other (Stomach) Condition: stable Disposition: PACU
[2021-05-14] MEDS: HYDROmorphone HCl 0.5 MG/0.5 ML SYRINGE IVPUSH ×2 (10:47→11:12)
--- NOTE | 2021-05-14 10:50 | PM.DS ---
DS: Providers Provider Date of Service: 05/15/21 Date of admission: 05/14/21 06:20 Primary care physician: Unknown Physician DS: Summary Hospital Course Hospital Course: ADMITTING DIAGNOSIS: morbid obesity, depression, anxiety, htn, hypothyroid, hld, hx cva, hx uterine ca, hx breast ca ? DISCHARGE DIAGNOSIS: same, s/p laparoscopic sleeve gastrectomy ? PAST SURGICAL HISTORY: left breast lumpectomy, [place] ? PROCEDURE: upper endoscopy, laparoscopic sleeve gastrectomy ? DISCHARGE SUMMARY: ? History of Present Illness: ? The patient is a?45 year-old woman with a BMI of?36.2 kg/m2 and associated co-morbidities as described above. The patient had extensive work-up,lost?19.8 lbs preoperatively and was electively scheduled for laparoscopic, possible open sleeve gastrectomy and gastropexy. Risks and complications of the surgery were discussed with the patient in advance, particularly the possibility of , pulmonary embolism, anastomotic leak, bleeding, bowel injury, GERD, cardiac, renal or pulmonary complications. The patient understood all the risks and was in agreement with the surgical plan. ? Hospital Course: ? The patient underwent an uneventful laparoscopic sleeve gastrectomy with gastropexy on the day of admission. Postoperatively, the patient was transferred to the surgical floor. The patient received IV Acetaminophen and IV dilaudid for pain control. Patient was started on bariatric phase 1 diet POD #0. On postoperative day one, the patient was feeling well without nausea, vomiting, fevers, or tachycardia. The patient had some mild incisional pain and the abdomen was soft. ? On the morning of postoperative day one, the patient was continued on 1 ounce of water or ice every half hour. During the day, the patient did fairly well, having some incisional pain, but able to ambulate adequately and to tolerate liquids well. ? Since the patient is doing well, we decided that the patient was ready to be discharged. The patient was given instructions to follow-up with me next week and to call my office for any fever over 101, persistent abdominal pain, nausea, vomiting, GERD, symptoms of DVT such as calf tenderness, or leg swelling, or pulmonary embolism such as chest pain or shortness of breath. The patient was also instructed to drink 40-60 ounces of liquids per day using the 1-ounce cups. The patient had been given prescriptions for Tylenol for pain, Zofran prn for nausea, and pantoprazole and carafate previously. The patient was encouraged to ambulate and use the incentive spirometer. The patient was allowed to shower, but no baths, and encouraged to stay active at home. All of these instructions were given to the patient personally. All questions were answered and the patient understood all instructions, the instructions were also given to the patient in print. Status at Discharge Overall status at discharge: patient is not back to baseline Time Spent with Patient Time attestation: Total time spent providing and/or coordinating discharge services: Discharge coordination time: Less than 30 minutes Quality: Stroke Does the patient have a stroke diagnosis?: No Physical Exam Vital Signs: Vital Signs: Last Vital Signs Temp 98.2 F 05/14/21 06:28 Pulse 88 05/14/21 06:28 Resp 18 05/14/21 10:47 BP 145/80 H 05/14/21 06:28 Pulse Ox 98 05/14/21 06:28 BMI result Body Mass Index 31.9 DS: Data Data Completed and Pending Pending studies at discharge: Pending at discharge 05/14/21 09:45 Surgical [PTH] Routine Labs on day of discharge: Laboratory Results - last 24 hr 05/13/21 12:10 COVID-19 ([facility]) Negative COVID-19 Clin Com See Note Discharge Plan Discharge Patient Disposition: Home, Self-Care Discharge Diagnosis: s/p laparoscopic sleeve gastrectomy Referrals: [facility] [Outside] - 1 Week Discharge Medications: Continued lisinopril 10 mg tablet 10 mg PO DAILY 0RF fluticasone propionate 50 mcg/actuation spray,suspension 2 spray intranasal DAILY 0RF albuterol sulfate 90 mcg/actuation HFA aerosol inhaler 2 puff inhalation Q4H PRN (Reason: wheezing) 0RF pantoprazole 40 mg tablet,delayed release (DR/EC) 40 mg PO DAILY Qty: 30 2RF sucralfate 100 mg/mL suspension 10 ml PO BID Qty: 400 2RF ondansetron HCl 4 mg tablet 4 mg PO Q12H Qty: 20 0RF Held cyclobenzaprine 10 mg tablet 10 mg PO TID PRN (Reason: muscle spasm) Qty: 14 0RF Hold Instructions: until discussed with Dr Lunsford Discontinued acetaminophen 500 mg tablet 500 mg PO Q6H PRN (Reason: pain) 0RF polyethylene glycol 3350 [Miralax] 17 gram powder in packet 17 g PO DAILY Qty: 14 0RF Rx Instructions: Mix each packet with 8oz of water and do 7 packets on 05/12/21 and another 7 packets on 05/13/21 Discharge Orders: Discharge Order (Routine); Ordered 05/15/21 Ordered By: Andrew Lunsford Diet: other Activity on Discharge: No heavy lifting Stand Alone Forms: Patient Portal Discharge page Care Plan Goals: weight loss Health Concerns: obesity Plan of Treatment: No tub baths, sex or returning to work until discussed at first post op appointment. No exercise, alcohol, tobacco or illegal drug use. Continue to use incentive spirometer hourly while awake. Walk in home for 5- 10 minutes every 2 hours during the first week. Follow all instructions in the bariatric handbook and call with any questions.Discharge Instructions 1. Please call your doctor or come back to the emergency room should any new symptoms arise. 2. You will receive a courtesy call from [facility] 24-48 hours after discharge. 3. Activity: abstain from alcohol, practice limited stair climbing, no bending, no driving, no exercise, no illicit substances, no lifting, no sex, no tub bath, no work. 4. Diet: continue as discussed with Dr. Lunsford. 5. Dressing Change/Wound Care: Your incision is covered by clear bandages and guaze underneath. If the area is tender, you may apply an ice pack for short intervals (no more than 20 minutes on, followed by at least 20 minutes off). Do not apply heat. Do not use creams, lotions, or topical antibiotics unless instructed to do so by your surgeon. These can cause infection or allergic reaction. 6. Call your doctor if: - Your temperature exceeds 101.5 F - You experience excessive pain or swelling - You have an unexpected reaction to medication - You have excessive bleeding - You experience continued vomiting/nausea - Your incision begins to separate - Your incision shows signs of infection such as increased redness, swelling, excessive pain, heat, or drainage (light blood or clear fluid is normal) 7. General instructions: No lifting greater than 5 lbs for the next 4 weeks. No driving within 24 hours of taking narcotic pain medications. If you do not move your bowels in the next 2 days, please take milk of magnesia over the counter. Please follow the post op diet and do not advance your diet until you are seen in the office in about 2 weeks. Please walk around your home every hour or two to prevent blood clots from forming in your legs. You do not need to wake from sleeping to walk. Please sleep in a bed or couch to prevent kinking at the hips and knees. Please take your incentive spirometer (your lung clinical athletic instructor) home with you and use it for the next few days to prevent pneumonias. You may shower, no hot tubs, baths or swimming pools. Please call the office with any questions or concerns such as increasing abdominal pain, fever, chills, shortness of breath, chest pain, leg pain or swelling, or redness or drainage from your incisions. Please stay on stage 3 diet which includes sugar free clear liquids such as ice pops and jello and broth and crystal light. Avoid all carbonation. Please drink 3 protein shakes with at least 25-30 grams of protein daily or 3 of the Celebrate 4:1 shakes which can be purchased in our office. The Celebrate shakes have all of the bariatric vitamins you need if you consume these shakes. If you are drinking other protein shakes, you will need to purchase the Celebrate multivitamins and calcium that we provide in the office (they will provide all the vitamins you need). Please make sure you are consuming at least 40-60 ounces of water in addition to your 3 protein shakes daily. Do not hesitate to contact the office with any questions at . The patient's medical history has been reviewed and they are considered low risk for post op DVT and therefore DVT prophylaxis is not considered necessary. Travel after surgery was reviewed. The patient has not disclosed any travel plans during the first 30 days after surgery and they have been advised that within the first 30 days after surgery any bus, plane, train or car travel over 2 hours in duration is contraindicated due to the possibility of developing blood clots from immobility. Any travel, needs to include periods of ambulation of 10 minutes in duration every 2 hours.? The patient was instructed to discuss any plans for travel during this period with their bariatric surgeon. Assessment: stable s/p laparoscopic sleeve gastrectomy Discharge Date/Time: 05/15/21 09:26
--- NOTE | 2021-05-14 10:51 | PM.PNGS ---
Subjective Subjective Date of Service: 05/14/21 Interval history: Patient has mild incisional pain, but was able to ambulate and use the incentive spirometer. She is tolerating phase 1 bariatric diet Physical Exam Vital Signs: Vital Signs: Last Vital Signs Temp 98.2 F 05/14/21 06:28 Pulse 88 05/14/21 06:28 Resp 18 05/14/21 10:47 BP 145/80 H 05/14/21 06:28 Pulse Ox 98 05/14/21 06:28 BMI result Body Mass Index 31.9 GI: Inspection: Yes normal to inspection, Yes incision (clean, dry and intact) and Yes obesity Extrem: Right lower extremity: normal to inspection (no calf tenderness) Left lower extremity: normal to inspection (no calf tenderness) Objective Data Active Medications Fentanyl (Fentanyl Citrate/Pf 100 Mcg/2 Ml Vial) 50 mcg IVPUSH Q5M PRN; Protocol PRN Reason: Pain, Moderate (Pain Scale 4-6 Hydromorphone HCl (Hydromorphone Hcl 0.5 Mg/0.5 Ml Syringe) 0.5 mg IVPUSH Q5M PRN; Protocol PRN Reason: Pain, Severe (Pain Scale 7-10) Last Admin: 05/14/21 10:47 Dose: 0.5 mg Documented by: [email or web address] Lactated Ringer's (Lr) 1,000 mls @ 50 mls/hr IVCONT .Q20H LEDA Promethazine HCl 6.25 mg/ (Sodium Chloride) 50.25 mls @ 201 mls/hr IV ONCE PRN PRN Reason: Nausea and Vomiting Ondansetron HCl (Ondansetron Hcl 4 Mg/2 Ml Vial) 4 mg IVPUSH ONCE PRN PRN Reason: Nausea and Vomiting Oxycodone HCl (Oxycodone Hcl Immed Release 5 Mg Tablet) 10 mg PO ONCE PRN PRN Reason: Pain, Mild (Pain Scale 1-3) Labs CBC & Chem 7: 05/08/21 07:50 05/08/21 07:50 Labs: Laboratory Results - last 24 hr 05/13/21 12:10 COVID-19 ([facility]) Negative COVID-19 Clin Com See Note Procedures Date of Service Date of Service: 05/14/21 Progress Note: A&P Assessment and plan (1) S/P laparoscopic sleeve gastrectomy: Status: Acute Assessment and Plan: s/p laparoscopic sleeve gastrectomy, lysis of adhesions repair of diaphragmatic hernia, and gastropexy Doing well Check am labs. If OK, will discharge home? (2) Obesity: Status: Acute (3) BMI 31.0-31.9,adult: Status: Acute (4) History of cerebrovascular accident (CVA) in adulthood: Status: Acute (5) Hypercholesterolemia: Status: Acute (6) History of breast cancer: Status: Acute (7) Asthma: Status: Acute (8) HTN (hypertension): Status: Acute (9) Congenital intra-abdominal adhesions: Status: Acute (10) GERD (gastroesophageal reflux disease): Status: Acute (11) Steatosis, liver: Status: Acute Fall Risk Details Current Medications: Current Medications Fentanyl (Fentanyl Citrate/Pf 100 Mcg/2 Ml Vial) 50 mcg IVPUSH Q5M PRN; Protocol PRN Reason: Pain, Moderate (Pain Scale 4-6 Hydromorphone HCl (Hydromorphone Hcl 0.5 Mg/0.5 Ml Syringe) 0.5 mg IVPUSH Q5M PRN; Protocol PRN Reason: Pain, Severe (Pain Scale 7-10) Last Admin: 05/14/21 10:47 Dose: 0.5 mg Documented by: Lactated Ringer's (Lr) 1,000 mls @ 50 mls/hr IVCONT .Q20H LEDA Promethazine HCl 6.25 mg/ (Sodium Chloride) 50.25 mls @ 201 mls/hr IV ONCE PRN PRN Reason: Nausea and Vomiting Ondansetron HCl (Ondansetron Hcl 4 Mg/2 Ml Vial) 4 mg IVPUSH ONCE PRN PRN Reason: Nausea and Vomiting Oxycodone HCl (Oxycodone Hcl Immed Release 5 Mg Tablet) 10 mg PO ONCE PRN PRN Reason: Pain, Mild (Pain Scale 1-3) Time Spent With Patient Time: Total time spent is greater than 50% in coordination of care (as documented) at patient's floor/unit and/or counseling patient: Time with patient: less than 15 minutes Quality Stroke Does the patient have a stroke diagnosis?: Yes Reason for No Anti-thrombotic by Day Two: Not indicated VTE Prior VTE?: No VTE Risk Level:: Surgical - moderate VTE Device Contraindication: N/A - Device Ordered VTE Drug Contraindication: Treatment Not Indicated
[2021-05-14] MEDS: Famotidine/PF 20 MG/2 ML VIAL IVPUSH ×2 (11:04→21:02)
[2021-05-14 11:30] LABS: Hematocrit 44.9 % (37.0-47.0); Hemoglobin 14.2 g/dl (12.0-16.0)
[2021-05-14] MEDS: Lactated Ringers 1,000 ML 100 ML IVCONT ×2 (11:33→21:05)
[2021-05-14] MEDS: Metoclopramide HCl 10 MG/2 ML VIAL IVPUSH ×2 (11:34→19:19)
[2021-05-14 11:57] LABS: Anion Gap 11 (12-20); Blood Urea Nitrogen 12 mg/dL (9-16); Calcium 9.2 mg/dL (8.4-10.2); Carbon Dioxide 28 mmol/L (22-29); Chloride 105 mmol/L (96-108); Creatinine Clr Calc Pharmacy 95.5; Estimated Glomerular Filt Rate > 60; Glucose Random 153 mg/dL (60-115); Potassium 4.5 mmol/L (3.3-5.1); Sodium 139 mmol/L (135-145)
[2021-05-14] MEDS: 0.9 % Sodium Chloride Flush 3 ML SYRINGE IVFLUSH (21:02)
[2021-05-14] MEDS: ondansetron HCL 4 MG/2 ML VIAL IVPUSH (21:02)
[2021-05-15 04:00] VITALS: BP 140/75; PULSE 86; RESP 18; TEMP 37; O2SAT 95
[2021-05-15] MEDS: ondansetron HCL 4 MG/2 ML VIAL IVPUSH (05:21)
[2021-05-15] MEDS: Lactated Ringers 1,000 ML 100 ML IVCONT (05:21)
[2021-05-15 06:07] LABS: MANUAL DIFF FLAG NO
[2021-05-15 06:22] LABS: Basophils Percent Auto 0.1 % (0-2); Eosinophils Percent Auto 0.1 % (0-4); Hemoglobin 12.5 g/dl (12.0-16.0); Imm Gran Abs Auto 0.04 X10*3/uL (0.00-0.03); Imm Gran Pct Auto 0.4 % (0.0-0.4); Lymphocytes Absolute Auto 1.3 X10*3/uL (1.2-4.9); Lymphocytes Percent Auto 12.6 % (20-40); Mean Corpuscular HGB Conc 32.1 g/dl (31.0-35.0); Mean Corpuscular Hemoglobin 29.5 pg (27.0-33.0); Mean Platelet Volume 10.6 fL (9.4-12.3); Monocytes Absolute Auto 0.9 X10*3/uL (0.1-1.2); Monocytes Percent Auto 8.5 % (2-11); Neutrophils Absolute Auto 8.1 x10*3/uL (2.0-8.3); Neutrophils Percent Auto 78.3 % (45-73); Platelet Count 269 X10*3/uL (160-400); Red Blood Count 4.24 X10*6/uL (4.20-5.50); Red Cell Distribution Width 13.2 % (11.0-16.0); White Blood Count 10.4 X10*3/uL (4.8-10.8)
[2021-05-15 06:30] LABS: Anion Gap 14 (12-20); Blood Urea Nitrogen 10 mg/dL (9-16); Calcium 9.1 mg/dL (8.4-10.2); Carbon Dioxide 24 mmol/L (22-29); Chloride 105 mmol/L (96-108); Creatinine Clr Calc Pharmacy 117.6; Estimated Glomerular Filt Rate > 60; Glucose Random 99 mg/dL (60-115); Potassium 3.8 mmol/L (3.3-5.1); Sodium 139 mmol/L (135-145)
[2021-05-15] MEDS: Famotidine/PF 20 MG/2 ML VIAL IVPUSH (07:14)
[2021-05-15 07:58] VITALS: BP 164/94; PULSE 72; RESP 18; TEMP 36.6; O2SAT 98
--- NOTE | 2021-05-15 08:07 | PM.PNGS ---
Subjective Subjective Date of Service: 05/15/21 Interval history: Patient has mild incisional pain, but was able to ambulate and use the incentive spirometer. She is tolerating phase 1 bariatric diet Physical Exam Vital Signs: Vital Signs: Last Vital Signs Temp 97.9 F 05/15/21 07:58 Pulse 72 05/15/21 07:58 Resp 18 05/15/21 07:58 BP 164/94 H 05/15/21 07:58 Pulse Ox 98 05/15/21 07:58 BMI result Body Mass Index 31.9 GI: Inspection: Yes normal to inspection and Yes incision (dry, clean and intact) Extrem: Right lower extremity: normal to inspection (no calf tenderness) Left lower extremity: normal to inspection (no ncalf tenderness) Objective Data Active Medications Famotidine (Famotidine/Pf 20 Mg/2 Ml Vial) 20 mg IVPUSH BID [facility] Last Admin: 05/15/21 07:14 Dose: 20 mg Documented by: DALI Hydromorphone HCl (Hydromorphone Hcl 0.5 Mg/0.5 Ml Syringe) 0.25 mg IVPUSH Q4H PRN; Protocol PRN Reason: Pain, Moderate (Pain Scale 4-6 Lactated Ringer's (Lr) 1,000 mls @ 100 mls/hr IVCONT .Q10H [facility] Last Admin: 05/15/21 05:21 Dose: 100 mls/hr Documented by: CYNDY Acetaminophen (Ofirmev) 1,000 mg in 100 mls @ 16.7 mls/hr IV .Q6H [facility] Last Admin: 05/15/21 05:21 Dose: 16.7 mls/hr Documented by: CYNDY Metoclopramide HCl (Metoclopramide Hcl 10 Mg/2 Ml Vial) 10 mg IVPUSH Q6H PRN PRN Reason: Nausea Last Admin: 05/14/21 19:19 Dose: 10 mg Documented by: CYNDY Ondansetron HCl (Ondansetron Hcl 4 Mg/2 Ml Vial) 4 mg IVPUSH Q8H [facility] Last Admin: 05/15/21 05:21 Dose: 4 mg Documented by: CYNDY Sodium Chloride (0.9 % Sodium Chloride Flush 3 Ml Syringe) 3 ml IVFLUSH QSHIFT [facility] Last Admin: 05/15/21 07:12 Dose: Not Given Documented by: DALI Non-Admin Reason: IV Running Labs CBC & Chem 7: 05/15/21 05:57 05/15/21 05:57 Labs: Laboratory Results - last 24 hr 05/14/21 05/15/21 05/15/21 11:20 05:57 05:57 MCV 92.0 MCH 29.5 MCHC 32.1 RDW 13.2 Plt Count 269 MPV 10.6 Immature Gran % (Auto) 0.4 Neut % (Auto) 78.3 H Lymph % (Auto) 12.6 L Blair % (Auto) 8.5 Eos % (Auto) 0.1 Baso % (Auto) 0.1 Lymph # (Auto) 1.3 Blair # (Auto) 0.9 Eos # (Auto) 0.0 Baso # (Auto) 0.0 Abs Immat Gran (auto) 0.04 H Absolute Neuts (auto) 8.1 Absolute Nucleated RBC 0.000 Nucleated RBC % (auto) 0.0 Anion Gap 11 L 14 Estim Creat Clear Calc 95.5 117.6 Estimated GFR > 60 > 60 Random Glucose 153 H 99 Calcium 9.2 9.1 Procedures Date of Service Date of Service: 05/15/21 Progress Note: A&P Assessment and plan (1) S/P laparoscopic sleeve gastrectomy: Status: Acute Assessment and Plan: s/p laparoscopic sleeve gastrectomy, lysis of adhesions and gastropexy Doing well Check am labs. If OK, will discharge home? (2) Obesity: Status: Acute (3) BMI 31.0-31.9,adult: Status: Acute (4) Hypercholesterolemia: Status: Acute (5) Asthma: Status: Acute (6) HTN (hypertension): Status: Acute (7) GERD (gastroesophageal reflux disease): Status: Acute (8) Congenital intra-abdominal adhesions: Status: Acute (9) Steatosis, liver: Status: Acute Fall Risk Details Current Medications: Current Medications Famotidine (Famotidine/Pf 20 Mg/2 Ml Vial) 20 mg IVPUSH BID [facility] Last Admin: 05/15/21 07:14 Dose: 20 mg Documented by: Hydromorphone HCl (Hydromorphone Hcl 0.5 Mg/0.5 Ml Syringe) 0.25 mg IVPUSH Q4H PRN; Protocol PRN Reason: Pain, Moderate (Pain Scale 4-6 Lactated Ringer's (Lr) 1,000 mls @ 100 mls/hr IVCONT .Q10H [facility] Last Admin: 05/15/21 05:21 Dose: 100 mls/hr Documented by: Acetaminophen (Ofirmev) 1,000 mg in 100 mls @ 16.7 mls/hr IV .Q6H [facility] Last Admin: 05/15/21 05:21 Dose: 16.7 mls/hr Documented by: Metoclopramide HCl (Metoclopramide Hcl 10 Mg/2 Ml Vial) 10 mg IVPUSH Q6H PRN PRN Reason: Nausea Last Admin: 05/14/21 19:19 Dose: 10 mg Documented by: Ondansetron HCl (Ondansetron Hcl 4 Mg/2 Ml Vial) 4 mg IVPUSH Q8H [facility] Last Admin: 05/15/21 05:21 Dose: 4 mg Documented by: Sodium Chloride (0.9 % Sodium Chloride Flush 3 Ml Syringe) 3 ml IVFLUSH QSHIFT [facility] Last Admin: 05/15/21 07:12 Dose: Not Given Documented by: Time Spent With Patient Time: Total time spent is greater than 50% in coordination of care (as documented) at patient's floor/unit and/or counseling patient: Time with patient: less than 15 minutes Quality Stroke Does the patient have a stroke diagnosis?: No Reason for No Anti-thrombotic by Day Two: Not indicated VTE Prior VTE?: No VTE Risk Level:: Surgical - moderate VTE Device Contraindication: N/A - Device Ordered VTE Drug Contraindication: Treatment Not Indicated
--- NOTE | 2021-05-15 08:48 | MHC.CM.PN ---
PATIENT LIVES ALONE.'SHE IS FULLY INDEPENDENT AND WORKS A [employer] NO DME OR VNA NEEDED. HCP IS ON FILE AND [facility] IN [place]. SHE DOES NOT RECALL THE NAME OF HER PCP. FULLY VACCINATED AGAINST COVID-19 DOES NOT RECALL THE DATES PATIENT IS DC HOME TODAY - SELF CARE. HER FRIEND WILL PROVIDE TRANPORT HOME
--- NOTE | 2021-05-15 09:27 | HO.POSTANES ---
Post Anesthesia Evaluation Post Anesthesia Evaluation Vital Signs: Vital Signs Temp Pulse Resp BP Pulse Ox 05/15/21 07:58 97.9 F 72 18 164/94 H 98 05/15/21 04:00 98.6 F 86 18 140/75 H 95 05/14/21 23:54 99.1 F 86 18 139/80 96 Anesthesia: General Endotracheal-GETA Mental Status: Awake Pain Control: Satisfactory Nausea/Vomiting: None Hydration: Adequate Anesthesia-Related Issues: No Anes. Related Issues
== END 2021-05-15 09:26 | disposition home or self-care (01) | DRG 403 ==
LOC: HO.SSSA 10:50 → HO.S3 11:43
PROVIDERS: Physician Assistant Surgical; Admitting Provider Surgery; PCP Internal Medicine; Visit Provider Surgery
PROC: 0DB64Z3 Excision of Stomach, Percutaneous Endoscopic Approach, Vertical (ICD-10-PCS; CPT 43845; principal; 2021-05-14 07:30)
DX: E66.01 Morbid (severe) obesity due to excess calories (principal); K76.0 Fatty (change of) liver, not elsewhere classified; E03.9 Hypothyroidism, unspecified; F17.290 Nicotine dependence, other tobacco product, uncomplicated; K21.9 Gastro-esophageal reflux disease without esophagitis; I10 Essential (primary) hypertension; K66.0 Peritoneal adhesions (postprocedural) (postinfection); J45.909 Unspecified asthma, uncomplicated; M54.9 Dorsalgia, unspecified; Z20.822 Contact with and (suspected) exposure to COVID-19; Z68.31 Body mass index [BMI] 31.0-31.9, adult; Z85.3 Personal history of malignant neoplasm of breast; Z86.73 Personal history of transient ischemic attack (TIA), and cerebral infarction without residual deficits; Z71.6 Tobacco abuse counseling; Z88.0 Allergy status to penicillin; Z88.6 Allergy status to analgesic agent; Z79.51 Long term (current) use of inhaled steroids; Z79.899 Other long term (current) drug therapy
CPT/HCPCS: 36415; 80048; 80053; 80061; 83036; 83525; 84443; 85014; 85018; 85025; 85610; 85730; 86140; 86850; 86900; 86901; 87635; 88307; 88342; 99024; A4649; J0131; J1100; J1170; J1956; J2250; J2405; J2550; J2765; J3010

== ENCOUNTER → 2021-05-21 14:34 | Outpatient (BNVA) | payer OTHER, SELFPAY | PROVIDERS: Referring Provider Internal Medicine; Visit Provider Surgery | DX: E66.9 Obesity, unspecified (principal); Z68.30 Body mass index [BMI] 30.0-30.9, adult; Z98.84 Bariatric surgery status | CPT/HCPCS: 99212 ==

== ENCOUNTER → 2021-07-01 08:12 | Outpatient (BNVA) | payer OTHER, SELFPAY | PROVIDERS: Visit Provider Physician Assistant | DX: Z13.89 Encounter for screening for other disorder (principal) ==

== ENCOUNTER → 2021-07-04 08:04 | Outpatient (BNVA) | payer OTHER, SELFPAY | PROVIDERS: Visit Provider Physician Assistant | DX: Z13.89 Encounter for screening for other disorder (principal) ==

== ENCOUNTER → 2021-07-11 08:17 | Outpatient (BNVA) | payer OTHER, SELFPAY | PROVIDERS: Visit Provider Physician Assistant | DX: Z13.89 Encounter for screening for other disorder (principal) ==

== ENCOUNTER → 2021-07-29 08:29 | Outpatient (BNVA) | payer OTHER, SELFPAY | PROVIDERS: Visit Provider Physician Assistant | DX: Z13.89 Encounter for screening for other disorder (principal) ==

== ENCOUNTER → 2021-11-29 12:56 | Outpatient (BNVA) | payer OTHER, SELFPAY | PROVIDERS: Referring Provider Physician Assistant; Visit Provider Physician Assistant Surgical | DX: L98.7 Excessive and redundant skin and subcutaneous tissue (principal); E66.3 Overweight; Z98.84 Bariatric surgery status; Z68.29 Body mass index [BMI] 29.0-29.9, adult | CPT/HCPCS: 99212 ==

== ENCOUNTER → 2022-03-11 16:31 | Outpatient (BNVA) | payer OTHER, SELFPAY | PROVIDERS: Visit Provider Physician Assistant Surgical | DX: E66.3 Overweight (principal); L98.7 Excessive and redundant skin and subcutaneous tissue; Z98.84 Bariatric surgery status; Z68.29 Body mass index [BMI] 29.0-29.9, adult | CPT/HCPCS: 99212 ==

== ENCOUNTER 2022-05-05 10:25 | Outpatient (REF) | payer OTHER, SELFPAY ==
[2022-05-05 10:51] LABS: MANUAL DIFF FLAG NO
[2022-05-05 12:08] LABS: Basophils Percent Auto 0.6 % (0-2); Eosinophils Absolute Auto 0.3 X10*3/uL (0.0-0.4); Eosinophils Percent Auto 4.6 % (0-4); Hematocrit 42.9 % (37.0-47.0); Hemoglobin 13.9 g/dl (12.0-16.0); Imm Gran Abs Auto 0.03 X10*3/uL (0.00-0.03); Imm Gran Pct Auto 0.5 % (0.0-0.4); Lymphocytes Absolute Auto 1.9 X10*3/uL (1.2-4.9); Lymphocytes Percent Auto 30.1 % (20-40); Mean Corpuscular HGB Conc 32.4 g/dl (31.0-35.0); Mean Corpuscular Hemoglobin 30.2 pg (27.0-33.0); Mean Corpuscular Volume 93.1 fL (80.0-98.0); Mean Platelet Volume 11.4 fL (9.4-12.3); Monocytes Absolute Auto 0.4 X10*3/uL (0.1-1.2); Monocytes Percent Auto 5.7 % (2-11); Neutrophils Absolute Auto 3.7 x10*3/uL (2.0-8.3); Neutrophils Percent Auto 58.5 % (45-73); Platelet Count 255 X10*3/uL (160-400); Red Blood Count 4.61 X10*6/uL (4.20-5.50); Red Cell Distribution Width 13.2 % (11.0-16.0); White Blood Count 6.3 X10*3/uL (4.8-10.8)
[2022-05-05 12:37] LABS: Estimated Average Glucose 97 mg/dL
[2022-05-05 13:11] LABS: Alanine Aminotransferase 16 U/L (0-31); Albumin Level 3.9 g/dL (3.5-5.0); Alkaline Phosphatase 100 U/L (39-117); Anion Gap 12 (12-20); Aspartate Amino Transferase 11 U/L (5-31); Bilirubin Total 0.5 mg/dL (0.0-1.0); Blood Urea Nitrogen 18 mg/dL (9-16); C Reactive Protein 0.24 mg/dL (< or = 0.50); Calcium 9.2 mg/dL (8.4-10.2); Carbon Dioxide 29 mmol/L (22-29); Chloride 107 mmol/L (96-108); Cholesterol 222 mg/dL; Estimated Glomerular Filt Rate > 60; Glucose Random 82 mg/dL (60-115); HDL Cholesterol 42 mg/dL; Iron 137 mcg/dL (30-160); LDL Cholesterol Calculated 163 mg/dl; Percent Iron Saturation 51 % (15-50); Potassium 4.5 mmol/L (3.3-5.1); Sodium 143 mmol/L (135-145); Total Iron Binding Capacity 270 mcg/dL (228-428); Total Protein 6.7 g/dL (6.5-8.0); Triglycerides 86 mg/dL; Unsaturated Iron Binding 133 ug/dL
[2022-05-05 13:24] LABS: Ferritin 172 ng/mL (10-250); Folate 10.9 ng/mL (> or = 4.0); Insulin 7 uU/mL (2-29); TSH reflex Free T4 1.28 uIU/mL (0.32-4.0); Vitamin B12 381 pg/mL (200-900); Vitamin D 25-OH Total 12.9 ng/mL (>30)
[2022-05-06 13:58] LABS: Calcium (PTHI) 9.6 mg/dL (8.6-10.2); PTHI 51 pg/mL (16-77)
[2022-05-07 23:59] LABS: Zinc 59 mcg/dL (60-130)
[2022-05-08 04:38] LABS: Vitamin A 49 mcg/dL (38-98)
[2022-05-10 10:18] LABS: Vitamin B1 9 nmol/L (8-30)
== END 2022-05-05 10:26 | disposition home or self-care (01) ==
LOC: HO.LAB 10:25
PROVIDERS: Visit Provider Physician Assistant Surgical
DX: L98.7 Excessive and redundant skin and subcutaneous tissue (principal); Z98.84 Bariatric surgery status
CPT/HCPCS: 36415; 80053; 80061; 82306; 82607; 82728; 82746; 83036; 83525; 83540; 83970; 84425; 84443; 84590; 84630; 85025; 86140

== ENCOUNTER → 2022-05-27 09:11 | Outpatient (BNVA) | payer OTHER, SELFPAY | PROVIDERS: Visit Provider Physician Assistant Surgical | DX: E66.9 Obesity, unspecified (principal); L98.7 Excessive and redundant skin and subcutaneous tissue; R21 Rash and other nonspecific skin eruption; J45.909 Unspecified asthma, uncomplicated; U07.0 Vaping-related disorder; F17.210 Nicotine dependence, cigarettes, uncomplicated; Z68.30 Body mass index [BMI] 30.0-30.9, adult; Z90.3 Acquired absence of stomach [part of]; Z79.51 Long term (current) use of inhaled steroids | CPT/HCPCS: 99212 ==

== ENCOUNTER → 2022-08-26 10:02 | Outpatient (BNVA) | payer OTHER, SELFPAY | PROVIDERS: Visit Provider Physician Assistant Surgical | DX: E66.9 Obesity, unspecified (principal); L98.7 Excessive and redundant skin and subcutaneous tissue; Z98.84 Bariatric surgery status; Z68.31 Body mass index [BMI] 31.0-31.9, adult | CPT/HCPCS: 99212 ==

== ENCOUNTER 2022-12-25 11:32 | Outpatient (AMB) | payer OTHER, SELFPAY ==
--- NOTE | 2022-12-25 11:36 | MHC.OFFVISWM ---
Intake VS Expanded 12/25/22 11:41 BP 124/76 Blood Pressure Location Rt brachial Blood Pressure Position Sitting Pulse 83 Pulse Source Pulse Oximeter Temp 98.6 F Temperature Source Temporal Artery Scan Pulse Oximetry 96 Oxygen Delivery Method Room Air Height 5 ft 6 in Weight 200 lb 3.2 oz BMI 32.3 Body Fat % 39.8 Body Fat Mass 79.6 Fat Free Mass 120.6 Visceral Fat Rating 9.0 Body Water % 42.8 Body Water Mass 85.8 Muscle Mass/Score 114.4 Basal Metabolic Rate/Score 1,659 Intake Visit Reasons: (OV) PO LSG 05/14/21 Allergies aspirin [ASA] Allergy (Unknown, Verified 12/25/22 11:38) DIFF BREATHING Penicillins [PENICILLINS] Allergy (Verified 12/25/22 11:38) DIFF BREATHING Medication List - Last Reconciled 12/25/22 by NI Tovar albuterol sulfate 90 mcg/actuation 2 puffs inhalation Q4H PRN cholecalciferol (vitamin D3) 125 mcg PO DAILY clotrimazole 1% 1 appl topical BID cyclobenzaprine 10 mg PO TID PRN fluticasone propionate 50 mcg/actuation 2 sprays intranasal DAILY lisinopril 10 mg PO DAILY pantoprazole 40 mg PO DAILY zinc gluconate 10 mg PO DAILY HPI HPI Comments History of Present Illness Details This?is a?47?yo female who is s/p LSG 05/14/2021. Presents for 19 month post op visit. Weight at last visit on 08/26/2022 was 194.4 pounds with a BMI of 31.4, weight today is 200.2 pounds, representing a 5.8 pound weight gain with a BMI today of 32.3.? No complaints of nausea, emesis, abdominal pain or reflux, or constipation. Feels hungry, stressed. Says she was up to 212lbs, but stopped soda, alcohol, smoking 8 days ago. Knows her alcohol use was too high so stopped on her own. Reports some dizziness at work. Present meal plan includes: 7am 2 eggs with avocado sometimes, plus coffee with a little cream- but sometimes skips breakfast 12pm English yogurt- has sometimes 5pm 4oz protein, salad/veg Gatorade protein water, 10g Can have snack of fruit or veg if hungry works 2-10pm has dinner around 4:30-5pm, trying not to eat at night Exercise: walking 1 hour daily Did the patient ever have any of these conditions and are they resolved or still being treated? GERD: pantoprazole ANDRES:? never DM:? never HTN:? lisinopril Hyperlipidemia:? was recently given a med to start but not taking at this time? Post op complications:? none PFSH Medical History (Updated 05/27/22 @ 09:30 by VINOD Solorzano) Hx of nephrolithotomy with removal of calculi Steatosis, liver GERD (gastroesophageal reflux disease) PONV (postoperative nausea and vomiting) BMI 31.0-31.9,adult BMI 33.0-33.9,adult BMI 35.0-35.9,adult H. pylori infection Asthma BMI 36.0-36.9,adult Preoperative examination History of cerebrovascular accident (CVA) in adulthood Hypothyroidism Hypercholesterolemia HTN (hypertension) Depression History of uterine cancer History of breast cancer Surgical History S/P laparoscopic sleeve gastrectomy History of total abdominal hysterectomy History of tubal ligation Hx of breast surgery Hx of colonoscopy History of endoscopy Family History Mother Hypertension Thyroid condition Father Diabetes Hypertension Mental and behavioral problem Heart problem Sister No problems noted. Sister No problems noted. Sister No problems noted. Sister No problems noted. Sister No problems noted. Sister No problems noted. Brother No problems noted. Brother No problems noted. Brother No problems noted. Brother No problems noted. Brother No problems noted. Brother No problems noted. Brother No problems noted. Brother No problems noted. Brother No problems noted. Brother No problems noted. Brother No problems noted. Son Asthma Son Asthma Daughter Thyroid condition Daughter No problems noted. Social History Are you a primary memory care director to a significant other at home: No Do you presently have visiting nurse or other home services: No Alcohol intake: former Patient Tobacco Use Status: Current everyday Tobacco user Tobacco use type: Smokeless Tobacco Cigarettes Per Day: 1 Years Smoked: 26 e-Cigarette/Vaping Use: Currently Using service: No Current occupational status: employed Assessment & Plan Assessment & Plan (1) S/P laparoscopic sleeve gastrectomy: Comment: 05/14/21 Code(s): Z98.84 - Bariatric surgery status Plan New meal plan with adequate protein: 7am breakfast- 2 eggs, can add a little avocado 12pm- protein water 4:30pm- dinner, 4oz protein (eat meat first, pt was eating salad first but not finishing protein), up to 4oz salad/veg 8pm- English yogurt, protein bar, or Quest chips discussed not undereating, not skipping meals Labs ordered. RTC 3 months. Patient is obese and is not considered stable at this time. I spent a total of 30 minutes reviewing/updating records, examining the patient and counseling the patient on weight management as detailed above. Orders: Orders IRON PROFILE Today E66.9 - Obesity, unspecified Vitamin B1 Today E66.9 - Obesity, unspecified Vitamin A Today E66.9 - Obesity, unspecified C Reactive Protein Today E66.9 - Obesity, unspecified TSH reflex Free T4 Today E66.9 - Obesity, unspecified Vitamin D 25-OH Total Today E66.9 - Obesity, unspecified Insulin Today E66.9 - Obesity, unspecified Lipid Panel Today E66.9 - Obesity, unspecified Complete Blood Count Auto Diff Today E66.9 - Obesity, unspecified Vitamin B12 and Folate Today E66.9 - Obesity, unspecified Zinc Today E66.9 - Obesity, unspecified Comprehensive Met. Panel Today E66.9 - Obesity, unspecified Ferritin Today E66.9 - Obesity, unspecified PTHI Today E66.9 - Obesity, unspecified Hemoglobin A1c Today E66.9 - Obesity, unspecified Coding Level of Care Code Est Pt Level 4 (08009) Diagnoses S/P laparoscopic sleeve gastrectomy Z98.84
[2022-12-25 11:41] VITALS: BP 124/76; PULSE 83; TEMP 37; O2SAT 96; BMI 32.3
== END 2022-12-25 12:43 | disposition home or self-care (01) ==
PROVIDERS: Visit Provider Physician Assistant Surgical
DX: E66.9 Obesity, unspecified (principal); Z68.32 Body mass index [BMI] 32.0-32.9, adult; Z90.3 Acquired absence of stomach [part of]; Z98.84 Bariatric surgery status
CPT/HCPCS: 99214

== ENCOUNTER → 2022-12-25 11:32 | Outpatient (BNVA) | payer OTHER, SELFPAY | PROVIDERS: Visit Provider Physician Assistant Surgical | DX: E66.9 Obesity, unspecified (principal); Z98.84 Bariatric surgery status; Z68.32 Body mass index [BMI] 32.0-32.9, adult | CPT/HCPCS: 99212 ==

== ENCOUNTER 2024-06-23 12:04 | Outpatient (AMB) | payer OTHER, SELFPAY ==
--- NOTE | 2024-06-23 12:06 | MHC.OFFVISWM ---
Intake Visit Reasons: (OV) PO LSG 05/14/21 Allergies aspirin [ASA] Allergy (Unknown, Verified 06/23/24 12:14) DIFF BREATHING Penicillins [PENICILLINS] Allergy (Verified 06/23/24 12:14) DIFF BREATHING Medication List - Last Reconciled 06/23/24 by NI Tovar albuterol sulfate 90 mcg/actuation 2 puffs inhalation Q4H PRN cholecalciferol (vitamin D3) 125 mcg PO DAILY clotrimazole 1% 1 appl topical BID cyclobenzaprine 10 mg PO TID PRN fluticasone propionate 50 mcg/actuation 2 sprays intranasal DAILY lisinopril 10 mg PO DAILY pantoprazole 40 mg PO DAILY zinc gluconate 10 mg PO DAILY HPI Comments Details: This?is a?48?yo female who is s/p LSG 05/14/2021. Presents for 3 year post op visit. Weight at last visit on 12/25/2022 was 200.2 pounds; weight today is 212.6 pounds, representing a 12.4 pound weight gain with a BMI today of 34.3.? No complaints of nausea, emesis, abdominal pain or reflux, or constipation. Pt continues to abstain from alcohol. Also lost her father recently. Left her job at [employer], wants to get a job at [employer] at [facility]. Present meal plan includes: given at last visit 7am breakfast- 2 eggs, can add a little avocado 12pm- protein water 4:30pm- dinner, 4oz protein (eat meat first, pt was eating salad first but not finishing protein), up to 4oz salad/veg 8pm- Korean yogurt, protein bar, or Quest chips Exercise: walking 1 hour daily Did the patient ever have any of these conditions and are they resolved or still being treated? GERD: pantoprazole ANDRES: never DM: never HTN: lisinopril Hyperlipidemia: was recently given a med to start but not taking at this time Post op complications: none PFSH Medical History (Updated 05/27/22 @ 09:30 by VINOD Solorzano) Hx of nephrolithotomy with removal of calculi Steatosis, liver GERD (gastroesophageal reflux disease) PONV (postoperative nausea and vomiting) BMI 31.0-31.9,adult BMI 33.0-33.9,adult BMI 35.0-35.9,adult H. pylori infection Asthma BMI 36.0-36.9,adult Preoperative examination History of cerebrovascular accident (CVA) in adulthood Hypothyroidism Hypercholesterolemia HTN (hypertension) Depression History of uterine cancer History of breast cancer Surgical History S/P laparoscopic sleeve gastrectomy History of total abdominal hysterectomy History of tubal ligation Hx of breast surgery Hx of colonoscopy History of endoscopy Family History Mother Hypertension Thyroid condition Father Diabetes Hypertension Mental and behavioral problem Heart problem Sister No problems noted. Sister No problems noted. Sister No problems noted. Sister No problems noted. Sister No problems noted. Sister No problems noted. Brother No problems noted. Brother No problems noted. Brother No problems noted. Brother No problems noted. Brother No problems noted. Brother No problems noted. Brother No problems noted. Brother No problems noted. Brother No problems noted. Brother No problems noted. Brother No problems noted. Son Asthma Son Asthma Daughter Thyroid condition Daughter No problems noted. Social History Are you a primary prompt care rn to a significant other at home: No Do you presently have visiting nurse or other home services: No Alcohol intake: former Patient Tobacco Use Status: Current everyday Tobacco user Tobacco use type: Smokeless Tobacco Cigarettes Per Day: 1 Years Smoked: 26 e-Cigarette/Vaping Use: Currently Using service: No Current occupational status: employed Assessment & Plan Assessment & Plan (1) S/P laparoscopic sleeve gastrectomy: Comment: 05/14/21 Code(s): Z98.84 - Bariatric surgery status Category: Surgical (2) Obesity: Code(s): E66.9 - Obesity, unspecified Category: Medical Plan Pt has done well on phentermine in the past. Requests to trial again for 3mo. Also will follow [employer] jose plan, card given to download. I texted pt and encouraged her to reach out to me with any questions. Labs ordered. RTC 6 weeks. Orders: Orders Lipid Panel Today Z98.84 - Bariatric surgery status Comprehensive Met. Panel Today Z98.84 - Bariatric surgery status Vitamin B12 and Folate Today Z98.84 - Bariatric surgery status Vitamin A Today Z98.84 - Bariatric surgery status TSH reflex Free T4 Today Z98.84 - Bariatric surgery status Ferritin Today Z98.84 - Bariatric surgery status Vitamin D 25-OH Total Today Z98.84 - Bariatric surgery status Insulin Today Z98.84 - Bariatric surgery status Hemoglobin A1c Today Z98.84 - Bariatric surgery status Complete Blood Count Auto Diff Today Z98.84 - Bariatric surgery status IRON PROFILE Today Z98.84 - Bariatric surgery status Zinc Today Z98.84 - Bariatric surgery status C Reactive Protein Today Z98.84 - Bariatric surgery status Vitamin B1 Today Z98.84 - Bariatric surgery status Medications: New phentermine must administer 2 hours after breakfast 30 mg PO DAILY 30 caps 0RF
[2024-06-23 12:20] VITALS: BP 134/89; PULSE 88; TEMP 36.6; O2SAT 97; BMI 34.3
--- OUTSIDE RECORDS SUMMARY | 2024-06-23 15:01 | XMS_ITS | Clinical Summary ---
Author Organization [address] Address [address] [place] [phone] Phone Care Team Providers Care Jockey Agent Name Role Phone Honorio Torres MD Primary Care Pr ovider Allergies Active Allergy Reactions Criticality Noted Date Comments Aspirin 01/03/2015 Rash Penicillins 01/03/2015 Rash,throat closes Medications bisacodyL (DULCOLAX) 5 mg EC tablet Take 2 tablets by mouth right before your first dose of liquid prep. 4 Active lisinopriL (PRINIVIL,ZESTRIL ) 10 mg tablet Take 1 Tablet by mouth at bedtime. 3 Active ketotifen fumarate (ZADITOR) 0.035 % ophthalmic solution apply 1 Drop to the eye 2 times daily. 3 Active atorvastatin (LIPITOR) 10 mg tablet Take 1 Tablet by mouth at bedtime. 3 Active metroNIDAZOLE (METROGEL) 0.75 % (37.5mg/5 gram) vaginal gel 1 application for 5 nights at bedtime 3 Active albuterol HFA (PROAIR HFA ; PROVENTIL HFA ; VENTOLIN HFA) 90 mcg/actuation inhaler Inhale 2 Puffs into the lungs every 6 hours as needed for Cough, Wheezing or Shortness of Breath. 3 Active loratadine (CLARITIN) 10 mg tablet Take 1 tablet (10 mg total) by mouth 1 (one) time each day. 3 Active omeprazole (PriLOSEC) [address] capsule Take 1 Capsule by mouth every morning (before breakfast). 3 Active topiramate (TOPAMAX) 25 mg tablet Take 1 tablet (25 mg total) by mouth 1 (one) time each day. 3 Active hydrOXYzine HCL (ATARAX) 25 mg tablet TAKE 1/2-1 TABLET BY MOUTH THREE TIMES A DAY NEEDED FOR ANXIETY 2 Active traZODone (DESYREL) 50 mg tablet Take 1 tablet (50 mg total) by mouth at bedtime as needed. 2 Active multivit-min/iron /folic acid/K (BARIATRIC MULTIVITAMINS ORAL) Take 1 Capsule by mouth daily. 2 Active fluticasone propionate (FLONASE) 50 mcg/actuation nasal spray 2 Sprays by Each Nare route daily. 3 Active fluticasone HFA (FLOVENT HFA) 110 mcg/actuation inhaler Inhale 1 Puff into the lungs 2 times daily. 3 Active Active Problems Problem Noted Date Diagnosed Date Breast cancer ([facility] V24, [facility] V28) 024 HTN (hypertension) 02/23/2024 Constipation 09/04/2022 Bipolar disorder ([facility] V24, [facility] V28) 08/08 Mild persistent asthma without complication 08/08 Schizophrenia ([facility] V24, [facility] V28) 023 Seasonal allergic rhinitis 09/04/2022 Obesity (BMI 30.0-34.9) 08/10/2020 Depression 04/08/2019 Overview (02/23/2024): Admitted suicidal ideation 03/28 History of alcohol abuse 06/30/2018 Overview (02/23/2024): For 15 yrs, sober 16 yrs History of substance abuse ([facility] V24, [facility] V28) 06/30/2018 Overview (02/23/2024): Cocaine, 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 Nephrolithiasis 01/25/2016 Hypercholesteremia 12/28/2015 Seizure disorder ([facility] V24, [facility] V28) 12/08 Cyst of ovary 07/08/2015 Anxiety 01/03/2015 Immunizations Name Administration Dates Next Due MMR, measles mumps and rubel la Live (Priorix; M-M-R II) 12mo and older 07/25/2021 Surgical History Surgery Date Site/Laterality Comments TUBAL LIGATION PROCEDURE: HISTORICAL TUBAL LIGATION BREAST BIOPSY Left PROCEDURE: BX BREAST; PERC NEEDLE CORE W/IMAG GUID HYSTERECTOMY 2009 PROCEDURE: HISTORICAL HYSTERECTOMY; COMMENT: per patient for uterine cancer- she was bleeding for 1 year Medical History Medical History Date Comments Hypothyroid DX:Hypothyroid HTN (hypertension) DX:HTN (hyper tension) Breast cancer ([facility] V24, [facility] V28) DX:Breast cancer (HCC) History of drug abuse in rem ission ([facility] V24, [facility] V28) DX:History of drug abuse in remission ([facility]); COMMENT: cocaine, heroin History of alcohol use DX:Histor y of alcohol use Seizure disorder ([facility] V2 4, [facility] V28) DX:Seizure disorder ([facility]) GERD (gastroesophageal reflux disease) DX:GERD (gastroesophageal reflux disease) History of substance abuse ( [facility] V24, [facility] V28) 06/30/2018 DX:History of substance abus e ([facility]); COMMENT: Cocaine, 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 History of alcohol abuse 06/30/2018 DX:Hist ory of alcohol abuse; COMMENT: For 15 yrs, sober 16 yrs Tobacco abuse 06/30/2018 DX:Tobacco abuse Depression 04/08/2019 DX:Depression; C OMMENT: Admitted suicidal ideation 03/28 Family History Medical History Relation Name Comments Hypertension Brother x 8 HLD Colon cancer Daughter Heart attack Father HTN, HLD, diabe itz, mental disorder Parkinson's Disease Maternal Grandmother Breast cancer Mother HTN, hyperthyr oid (?) Ovarian cancer Mother Breast cancer Paternal Grandfather and th yroid cancer (?) Diabetes Paternal Grandmother HTN, de mentia Breast cancer Sister x 6 HTN, ID (in 40 s), T1DM Relation Name Status Comments Brother x 8 Alive Daughter Alive Father Alive Maternal Grandfather unknown Maternal Grandmother Mother Alive Paternal Grandfather Paternal Grandmother Sister x 6 Alive Social History Tobacco Use Types Packs/Day Years Used Date Smoking Tobacco: Every Day Cigarettes Started: 1989 Smokeless Tobacco: Never Alcohol Use Standard Drinks/Week Comments Not Currently 0 (1 standard drink = 0.6 oz pur e alcohol) Comments Unknown Sex and Gender Information Value Date Recorded Sex Assigned at Not on file Legal Sex Female 9:52 AM EST Gender Identity Not on file Sexual Orientation Not on file Obstetrics History Last Filed Vital Signs Vital Sign Reading Time Taken Comments Blood Pressure 122/84 12/24/2022 9:07 AM EDT Pulse 72 12/24/2022 9:07 AM EDT Temperature - - Respiratory Rate - - Oxygen Saturation - - Inhaled Oxygen Concentration - - Weight 90.7 kg (200 lb) 12/24/2022 9:07 AM EDT Height 170.2 cm (5' 7 ) 12/24/2022 9:07 AM EDT Body Mass Index 31.32 12/24/2022 9:07 AM EDT Plan of Treatment Health Maintenance Due Date Last Done Comments COVID-19 Vaccine (#1) 1978 DTaP,Tdap,and Td Vaccines (1 - Tdap) 1992 Hepatitis B Vaccines (1 of 3 - 19+ 3-dose series) 1992 Pneumococcal Vaccine: 50+ Years (1 of 2 - PCV) 1992 Pneumococcal Vaccine: Pediatrics (0 to 5 Years) and At-Risk Patients (6 to 64 Years) (1 of 2 - PCV) 1992 Zoster Vaccines (1 of 2) 1992 Cervical Cancer Screening: P ap Smear 1994 Depression Screening 02/04/2022 Social Influencers of Health Screening 02/04/2022 Hypertension/CHF/CAD Annual BMP Blood Test 12/25/2023 12/24/2022 Influenza Vaccine (Season Ended) 2024 Breast Cancer Screening 04/13/2025 04/13/19 24, 03/17/2023 Cholesterol Screening (Lipid Panel) 12/25/2027 12/24/2022 Colorectal Cancer Screening: Colonoscopy 08/12/2028 08/12/2018 MMR Vaccines Aged Out 07/25/2021 No longer eligi ble based on patient's age to complete this topic HIV Screening Completed 09/04/2022 Hepatitis C Screening Completed 09/04/2022 HIB Vaccines Aged Out No longer eligi ble based on patient's age to complete this topic HPV Vaccines Aged Out No longer eligi ble based on patient's age to complete this topic Hepatitis A Vaccines Aged Out No long er eligible based on patient's age to complete this topic IPV Vaccines Aged Out No longer eligi ble based on patient's age to complete this topic Meningococcal ACWY Vaccine Aged Out N o longer eligible based on patient's age to complete this topic Meningococcal B Vaccine Aged Out No l onger eligible based on patient's age to complete this topic RSV Immunization Patients Under 20 months Aged Out No longer eligible b ased on patient's age to complete this topic Varicella Vaccines Aged Out No longer eligible based on patient's age to complete this topic Procedures Procedure Name Priority Date/Time Associated Diagnosis Comments DIAGNOSTIC MAMMOGRAPHY WITH CAD UNILATERAL Routine 04/13/2023 9:29 AM EST Other abnormal and inconclusive findings on diagnostic imaging of breast ANNUAL BMP BLOOD TEST Routine 12/24/2022 LIPID PANEL Routine 12/24/2022 HEPATITIS C SCREENING Routine 09/04/2022 HIV SCREENING Routine 09/04/2022 COLONOSCOPY Routine 08/12/2018 from Last 3 Months or Most Recently Relevant to Health Maintenance Results * DIAGNOSTIC MAMMOGRAPHY WITH CAD UNILATERAL (04/13/2023 9:29 AM EST) Anatomical Region Laterality Modality Mammography 03/18/2023 12:2 6 PM EST Narrative 04/13/2023 9:52 AM EST This is a summary report. The complete report is available in the patient's medical record. If you cannot access the medical record, please contact the sending organization for a detailed fax or copy. Exam: Unilateral left digital diagnostic mammogram and left breast ultrasound. History: Call back Findings: Patient is recalled from a screening mammogram performed 03/17/2023 for additional imaging on the left. 90 ML and spot compression MLO and CC views were performed with tomosynthesis. The focal asymmetry in the anterior upper outer breast does not persist on the additional views. ??No mass or architectural distortion is apparent. ??Parenchymal pattern is similar to prior exams. Ultrasound performed as a precaution in the upper outer breast without a solid or cystic lesion identified. Impression: No suspicious finding on callback imaging. ??Routine annual screening mammography recommended. BI-RADS 1-negative Procedure Note Ashley Donovan MD - 10/26/2023 This is a summary report. The complete report is available in thepatient's medical record. If you cannot access the medical record, pleasecontact the sending organization for a detailed fax or copy. Exam: Unilateral left digital diagnostic mammogram and left breastultrasound. History: Call back Findings: Patient is recalled from a screening mammogram performed03/17/2023 for additional imaging on the left. 90 ML and spot compression MLO and CC views were performed withtomosynthesis. The focal asymmetry in the anterior upper outer breast doesnot persist on the additional views. No mass or architectural distortionis apparent. Parenchymal pattern is similar to prior exams. Ultrasound performed as a precaution in the upper outer breast without asolid or cystic lesion identified. Impression: No suspicious finding on callback imaging. Routine annualscreening mammography recommended. BI-RADS 1-negative Honorio Torres MD [facility] BI PROCEDURE S Final Result * Annual BMP Blood Test (12/24/2022) [facility] Annual BMP Blood Test abstracted [facility] Provider HEALTH MAINTENANCE Final Result * (ABNORMAL) Lipid panel (12/24/2022) [facility] LDL/HDL Ratio 4 0 - 4 Triglycerides 105 0 - 150 mg/dL Cholesterol 193 0 - 200 mg/dL HDL 49 >=40 mg/dL LDL Cholesterol 123(A) 0 - 100 mg/dL Blood Venous blood specimen / Unknown Historical Provider LAB BLOOD ORDERABLES Claire l Result * HIV Screening (09/04/2022) HIV Screening abstracted Historical Provider HEALTH MAINTENANCE Final Result * Hepatitis C Screening (09/04/2022) Hepatitis C Screening abstracted Historical Provider HEALTH MAINTENANCE Final Result * Colonoscopy (08/12/2018) Colonoscopy no interpretation , abstracted Anatomical Region Laterality Modality Other Historical Provider HEALTH MAINTENANCE Final Result from Last 3 Months or Most Recently Relevant to Health Maintenance Insurance [facility] [employer] Care Teams Jockey Agent Relationship Specialty Start Date End Date Honorio Torres MD [address] [place] [address] PCP - General 06/11/22
--- OUTSIDE RECORDS SUMMARY | 2024-06-23 15:01 | XMS_ITS | Clinical Summary ---
Author Organization [employer] Address [address] [place] [address] Care Team Providers Care Family Day Care Worker Name Role Phone Unavailable Primary Care Provider Unavailabl e Encounters Date Type Department Care Team Description 06/10/2024 1:15 PM EDT Office Visit [facility] [address] [place] [address] Rowdy, Arlette, OD Presbyopia (Primary Dx) from Last 3 Months Social History Tobacco Use Types Packs/Day Years Used Date Smoking Tobacco: Never Assessed Comments Unknown Sex and Gender Information Value Date Recorded Sex Assigned at Female 08/19/2023 3:11 PM EDT Legal Sex Female 3:10 PM EDT Gender Identity Female 08/19/2023 3:11 PM EDT Sexual Orientation Straight 08/19/2023 3: 11 PM EDT Plan of Treatment Health Maintenance Due Date Last Done Comments CT Colonography 1973 Colonoscopy 1973 Colorectal Cancer Screening 1973 Depression Screening 1973 FIT DNA/Cologuard 1973 FIT 1973 FOBT 1973 HIV Screening 1973 Lipid Panel 1973 SDOH Screening 1973 Sigmoidoscopy 1973 Alcohol/Substance Use Screening 1985 Tobacco Screening 1985 Family Planning (PISQ) 1988 Hepatitis C Screening 11/10/1991 DTaP/Tdap/Td Vaccines (1 - Tdap) 1992 Hepatitis B Vaccines (1 of 3 - 19+ 3-dose series) 1992 Pneumococcal Vaccine: 50+ Ye ars (1 of 2 - PCV) 1992 Pap Smear 1994 Cervical Cancer Screening 11/10/2003 HPV/Cotest 11/10/2003 COVID-19 Vaccine ( - 2023-2 5 season) 2023 Influenza Vaccine (#1) 2023 Zoster Vaccines (1 of 2) 11/10/2023 RSV Patients and Pa tients Aged 60 years or older (1 - 1-dose 75+ series) 2048 HIB Vaccines Aged Out No longer eligi [...] patient's age to complete this topic Meningococcal Vaccine Aged Out No wong kylah eligible based on patient's age to complete this topic RSV under 20 months Aged Out No longe r eligible based on patient's age to complete this topic Rotavirus Vaccines Aged Out No longer eligible based on patient's age to complete this topic Insurance [facility]
== END 2024-06-23 12:34 | disposition home or self-care (01) ==
LOC: HO.HBS 12:04
PROVIDERS: Visit Provider Physician Assistant Surgical
DX: E66.9 Obesity, unspecified (principal); Z68.34 Body mass index [BMI] 34.0-34.9, adult; Z90.3 Acquired absence of stomach [part of]; Z98.84 Bariatric surgery status
CPT/HCPCS: 99214; G2211

== ENCOUNTER → 2024-06-23 12:04 | Outpatient (BNVA) | payer OTHER, SELFPAY | PROVIDERS: Visit Provider Physician Assistant Surgical | DX: E66.9 Obesity, unspecified (principal); Z98.84 Bariatric surgery status | CPT/HCPCS: 99212 ==

== ENCOUNTER 2024-06-30 12:27 | Outpatient (REF) | payer OTHER, SELFPAY ==
[2024-06-30 12:48] LABS: MANUAL DIFF FLAG NO
[2024-06-30 14:24] LABS: Basophils Percent Auto 0.6 % (0-2); Eosinophils Absolute Auto 0.3 X10*3/uL (0.0-0.4); Eosinophils Percent Auto 4.9 % (0-4); Hematocrit 42.4 % (37.0-47.0); Hemoglobin 13.6 g/dl (12.0-16.0); Imm Gran Abs Auto 0.02 X10*3/uL (0.00-0.03); Imm Gran Pct Auto 0.3 % (0.0-0.4); Lymphocytes Absolute Auto 1.9 X10*3/uL (1.2-4.9); Lymphocytes Percent Auto 27.5 % (20-40); Mean Corpuscular HGB Conc 32.1 g/dl (31.0-35.0); Mean Corpuscular Hemoglobin 28.6 pg (27.0-33.0); Mean Corpuscular Volume 89.3 fL (80.0-98.0); Mean Platelet Volume 11.1 fL (9.4-12.3); Monocytes Absolute Auto 0.4 X10*3/uL (0.1-1.2); Monocytes Percent Auto 5.2 % (2-11); Neutrophils Absolute Auto 4.2 x10*3/uL (2.0-8.3); Neutrophils Percent Auto 61.5 % (45-73); Platelet Count 271 X10*3/uL (160-400); Red Blood Count 4.75 X10*6/uL (4.20-5.50); White Blood Count 6.8 X10*3/uL (4.8-10.8)
[2024-06-30 14:30] LABS: Estimated Average Glucose 105 mg/dL; Hemoglobin A1C 124.0998 umol/L; Hemoglobin A1c % 5.3 % (<6.0); Total Hemoglobin (HGBA1C) 3602.5952 umol/L
--- OUTSIDE RECORDS SUMMARY | 2024-06-30 14:44 | XMS_ITS | Clinical Summary ---
Author Organization [employer] Address [address] [place] [address] Care Team Providers Care Pullman Clerk Name Role Phone Unavailable Primary Care Provider Unavailabl e Encounters Date Type Department Care Team Description 06/10/2024 1:15 PM EDT Office Visit [facility] [address] [place] [address] Rowdy, Arlette, OD Presbyopia (Primary Dx) from [...] patient's age to complete this topic Insurance [facility] [id number]
--- OUTSIDE RECORDS SUMMARY | 2024-06-30 14:44 | XMS_ITS | Clinical Summary ---
Author Organization [address] Address [address] [place] [phone] Phone Care Team Providers Care Histology Aide Name Role Phone Honorio Torres MD Primary [...] Problem Noted Date Diagnosed Date Breast cancer ([facility] V24, [facility] V28) 024 HTN (hypertension) 02/23/2024 Constipation 09/04/2022 Bipolar disorder ([facility] V24, [facility] V28) 08/08 Mild persistent asthma without complication 08/08 Schizophrenia ([facility] V24, [facility] V28) 023 Seasonal allergic rhinitis 09/04/2022 Obesity (BMI 30.0-34.9) 08/10/2020 Depression 04/08/2019 Overview (02/23/2024): Admitted suicidal ideation 03/28 History of alcohol abuse 06/30/2018 Overview (02/23/2024): For 15 yrs, sober 16 yrs History of substance abuse ([facility] V24, [facility] V28) 06/30/2018 Overview (02/23/2024): Cocaine, 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 Nephrolithiasis 01/25/2016 Hypercholesteremia 12/28/2015 Seizure disorder ([facility] V24, [facility] V28) 12/08 Cyst of ovary 07/08/2015 Anxiety [...] HTN (hypertension) DX:HTN (hyper tension) Breast cancer ([facility] V24, [facility] V28) DX:Breast cancer (HCC) History of drug abuse in rem ission ([facility] V24, [facility] V28) DX:History of drug abuse in remission ([facility]); COMMENT: cocaine, heroin History of alcohol use DX:Histor y of alcohol use Seizure disorder ([facility] V2 4, [facility] V28) DX:Seizure disorder ([facility]) GERD (gastroesophageal reflux disease) DX:GERD (gastroesophageal reflux disease) History of substance abuse ( [facility] V24, [facility] V28) 06/30/2018 DX:History of substance abus e ([facility]); COMMENT: Cocaine, heroin No IVDU Sober for [...] mentia Breast cancer Sister x 6 HTN, NE (in 40 s), T1DM Relation Name Status [...] mammography recommended. BI-RADS 1-negative Honorio Torres MD [facility] BI PROCEDURE S Final Result * Annual BMP Blood Test (12/24/2022) [facility] Annual BMP Blood Test abstracted [facility] Provider HEALTH MAINTENANCE Final Result * (ABNORMAL) Lipid panel (12/24/2022) [facility] LDL/HDL Ratio 4 0 - 4 Triglycerides [...] Most Recently Relevant to Health Maintenance Insurance [facility] [facility] Care Teams Histology Aide Relationship Specialty Start Date End Date Honorio Torres MD [address] [place] [address] PCP - General 06/11/22
[2024-06-30 14:51] LABS: Alanine Aminotransferase 21 U/L (0-31); Albumin Level 4.2 g/dL (3.5-5.0); Alkaline Phosphatase 121 U/L (39-117); Anion Gap 8 (12-20); Aspartate Amino Transferase 17 U/L (5-31); Bilirubin Total 0.4 mg/dL (0.0-1.0); Blood Urea Nitrogen 11 mg/dL (9-16); C Reactive Protein 0.34 mg/dL (< or = 0.50); Calcium 9.5 mg/dL (8.4-10.2); Carbon Dioxide 31 mmol/L (22-29); Chloride 106 mmol/L (96-108); Cholesterol 220 mg/dL (<200); Estimated Glomerular Filt Rate > 60; Glucose Random 101 mg/dL (60-115); HDL Cholesterol 50 mg/dL (>40); Iron 49 mcg/dL (30-160); LDL Cholesterol Calculated 155 mg/dL (<100); Percent Iron Saturation 21 % (15-50); Potassium 3.7 mmol/L (3.3-5.1); Sodium 141 mmol/L (135-145); Total Iron Binding Capacity 236 mcg/dL (228-428); Total Protein 7.4 g/dL (6.5-8.0); Triglycerides 77 mg/dL (<150); Unsaturated Iron Binding 187 ug/dL
[2024-06-30 14:55] LABS: Ferritin 224 ng/mL (10-250); TSH reflex Free T4 1.25 uIU/mL (0.32-4.0)
[2024-06-30 15:10] LABS: Folate 11.4 ng/mL (> or = 4.0); Vitamin B12 377 pg/mL (200-900)
[2024-06-30 15:15] LABS: Insulin 13 uU/mL (2-29)
[2024-07-04 01:58] LABS: Vitamin A 32 mcg/dL (38-98)
[2024-07-04 04:33] LABS: Zinc 65 mcg/dL (60-130)
[2024-07-07 16:28] LABS: Vitamin B1 8 nmol/L (8-30)
== END 2024-06-30 12:28 | disposition home or self-care (01) ==
LOC: HO.LAB 12:27
PROVIDERS: Visit Provider Physician Assistant Surgical
DX: Z98.84 Bariatric surgery status (principal)
CPT/HCPCS: 36415; 80053; 80061; 82306; 82607; 82728; 82746; 83036; 83525; 83540; 84425; 84443; 84590; 84630; 85025; 86140

== ENCOUNTER 2024-08-03 13:21 | Outpatient (AMB) | payer OTHER, SELFPAY ==
--- NOTE | 2024-08-03 13:29 | A.OFFVIS_ITS ---
VS Expanded 08/03/24 13:34 Height 5 ft 6 in Weight 202 lb BMI 32.6 Intake Visit Reasons: TV PO LSG 05/14/21 Allergies aspirin [ASA] Allergy (Unknown, Verified 06/23/24 12:14) DIFF BREATHING Penicillins [PENICILLINS] Allergy (Verified 06/23/24 12:14) DIFF BREATHING Medication List - Last Reconciled 08/03/24 by NI Tovar albuterol sulfate 90 mcg/actuation 2 puffs inhalation Q4H PRN cholecalciferol (vitamin D3) 125 mcg PO DAILY clotrimazole 1% 1 appl topical BID cyclobenzaprine 10 mg PO TID PRN fluticasone propionate 50 mcg/actuation 2 sprays intranasal DAILY lisinopril 10 mg PO DAILY pantoprazole 40 mg PO DAILY phentermine 30 mg PO DAILY [Vitamin A acetate 3,000 mcg PO DAILY] zinc gluconate 10 mg PO DAILY HPI Comments Details: This?is a?48?yo F who is s/p LSG 05/14/2021. Weight at last visit on 06/23/2024 was 212 pounds, weight today is 202 pounds, representing a 10 pound weight loss with a BMI today of 32.6. No complaints of nausea, emesis, abdominal pain or reflux, or constipation. She started on phentermine after last visit. She has been consistent in texting me BP readings multiple times per week. She takes lisinopril in AM, then takes phentermine after breakfast. Reports more energy. 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 She shares that she is very grateful for the help of our practice and feels back on track, motivated, positive attitude. Present meal plan includes: 7am breakfast- 2 eggs, can add a little avocado 12pm- protein water 4:30pm- dinner, 4oz protein (eat meat first, pt was eating salad first but not finishing protein), up to 4oz salad/veg 8pm- Polish yogurt, protein bar, or [employer] chips Exercise: walking 1 hour daily [facility] Medical History (Updated 05/27/22 @ 09:30 by VINOD Solorzano) Hx of nephrolithotomy with removal of calculi Steatosis, liver GERD (gastroesophageal reflux disease) PONV (postoperative nausea and vomiting) BMI 31.0-31.9,adult BMI 33.0-33.9,adult BMI 35.0-35.9,adult H. pylori infection Asthma BMI 36.0-36.9,adult Preoperative examination History of cerebrovascular accident (CVA) in adulthood Hypothyroidism Hypercholesterolemia HTN (hypertension) Depression History of uterine cancer History of breast cancer Surgical History S/P laparoscopic sleeve gastrectomy History of total abdominal hysterectomy History of tubal ligation Hx of breast surgery Hx of colonoscopy History of endoscopy Family History Mother Hypertension Thyroid condition Father Diabetes Hypertension Mental and behavioral problem Heart problem Sister No problems noted. Sister No problems noted. Sister No problems noted. Sister No problems noted. Sister No problems noted. Sister No problems noted. Brother No problems noted. Brother No problems noted. Brother No problems noted. Brother No problems noted. Brother No problems noted. Brother No problems noted. Brother No problems noted. Brother No problems noted. Brother No problems noted. Brother No problems noted. Brother No problems noted. Son Asthma Son Asthma Daughter Thyroid condition Daughter No problems noted. Social History Are you a primary patient care assistant to a significant other at home: No Do you presently have visiting nurse or other home services: No Alcohol intake: former Patient Tobacco Use Status: Current everyday Tobacco user Tobacco use type: Smokeless Tobacco Cigarettes Per Day: 1 Years Smoked: 26 e-Cigarette/Vaping Use: Currently Using service: No Current occupational status: employed Telehealth Telehealth Telehealth Platform: Telephone Location of provider rendering services: other Location of patient: address on file Patient Identification confirmed using: Name, : Yes Telehealth method: voice only Patient verbally consented to treatment: Yes Patient verbally consented to billing insurance company: Yes Patient informed of any privacy concerns related to visit: Yes Minutes spent on Phone/Video with Pt.: 15 Assessment & Plan Assessment & Plan (1) S/P laparoscopic sleeve gastrectomy: Comment: 05/14/21 Code(s): Z98.84 - Bariatric surgery status Category: Surgical (2) Obesity: Code(s): E66.9 - Obesity, unspecified Category: Medical Plan Pt doing well on phentermine, can continue. Was just refilled last week. She will continue to check BP daily and text me measurements. Gave parameters for BP for holding phentermine. Labs reviewed, vit A/D supplements ordered previously and pt reports she has started taking them. RTC 2-3 months.
[2024-08-03 13:34] VITALS: BMI 32.6
--- OUTSIDE RECORDS SUMMARY | 2024-08-03 14:13 | XMS_ITS | Clinical Summary ---
Author Organization [address] Address [address] [place] [id number] Phone Care Team Providers Care Dye Mixer Name Role Phone Honorio Torres MD Primary [...] Problem Noted Date Diagnosed Date Breast cancer ([facility] V24, [facility] V28) 024 HTN (hypertension) 02/23/2024 Constipation 09/04/2022 Bipolar disorder ([facility] V24, [facility] V28) 08/08 Mild persistent asthma without complication 08/08 Schizophrenia ([facility] V24, [facility] V28) 023 Seasonal allergic rhinitis 09/04/2022 Obesity (BMI 30.0-34.9) 08/10/2020 Depression 04/08/2019 Overview (02/23/2024): Admitted suicidal ideation 03/28 History of alcohol abuse 06/30/2018 Overview (02/23/2024): For 15 yrs, sober 16 yrs History of substance abuse ([facility] V24, [facility] V28) 06/30/2018 Overview (02/23/2024): Cocaine, 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 Nephrolithiasis 01/25/2016 Hypercholesteremia 12/28/2015 Seizure disorder ([facility]24, [facility] V28) 12/08 Cyst of ovary 07/08/2015 Anxiety [...] HTN (hypertension) DX:HTN (hyper tension) Breast cancer ([facility] V24, [facility] V28) DX:Breast cancer (HCC) History of drug abuse in rem ission ([facility] V24, [facility] V28) DX:History of drug abuse in remission ([facility]); COMMENT: cocaine, heroin History of alcohol use DX:Histor y of alcohol use Seizure disorder ([facility] V2 4, [facility] V28) DX:Seizure disorder ([facility]) GERD (gastroesophageal reflux disease) DX:GERD (gastroesophageal reflux disease) History of substance abuse ( [facility] V24, [facility] V28) 06/30/2018 DX:History of substance abus e ([facility]); COMMENT: Cocaine, heroin No IVDU Sober for [...] mentia Breast cancer Sister x 6 HTN, [place] (in 40 s), T1DM Relation Name Status [...] mammography recommended. BI-RADS 1-negative Honorio Torres MD [facility] BI PROCEDURE S Final Result * Annual BMP Blood Test (12/24/2022) [facility] Annual BMP Blood Test abstracted [facility] Provider HEALTH MAINTENANCE Final Result * (ABNORMAL) Lipid panel (12/24/2022) [facility] LDL/HDL Ratio 4 0 - 4 Triglycerides [...] Most Recently Relevant to Health Maintenance Insurance [facility] Care Teams Dye Mixer Relationship Specialty Start Date End Date Honorio Torres MD [address] [place] [address] PCP - General 06/11/22
== END 2024-08-03 13:50 | disposition home or self-care (01) ==
LOC: HO.HBS 13:22
PROVIDERS: Visit Provider Physician Assistant Surgical
DX: E66.9 Obesity, unspecified (principal); Z68.32 Body mass index [BMI] 32.0-32.9, adult; Z90.3 Acquired absence of stomach [part of]; Z98.84 Bariatric surgery status
CPT/HCPCS: 99214; G2211

== ENCOUNTER 2024-10-06 09:21 | Outpatient (AMB) | payer OTHER, SELFPAY ==
--- NOTE | 2024-10-06 09:34 | MHC.OFFVISWM ---
VS Expanded 10/06/24 09:40 BP 143/81 H Blood Pressure Location Rt brachial Blood Pressure Position Sitting Pulse 77 Pulse Source Pulse Oximeter Temp 97.2 F Temperature Source Temporal Artery Scan Pulse Oximetry 96 Oxygen Delivery Method Room Air Height 5 ft 6 in Weight 195 lb 9.6 oz BMI 31.6 Body Fat % 38.4 Body Fat Mass 75.2 Fat Free Mass 120.4 Body Water % 43.7 Body Water Mass 85.6 Muscle Mass/Score 114.2 Basal Metabolic Rate/Score 1,648 Intake Visit Reasons: (OV) PO LSG 05/14/21 Allergies aspirin (ASA) Allergy (Unknown, Verified 10/06/24 09:37) DIFF BREATHING Penicillins (PENICILLINS) Allergy (Verified 10/06/24 09:37) DIFF BREATHING Medication List - Last Reconciled 10/06/24 by NI Tovar albuterol sulfate 90 mcg/actuation 2 puffs inhalation Q4H PRN cholecalciferol (vitamin D3) 125 mcg PO DAILY clotrimazole 1% 1 appl topical BID cyclobenzaprine 10 mg PO TID PRN Held on 05/15/21. Instructions: until discussed with Dr Lunsford fluticasone propionate 50 mcg/actuation 2 sprays intranasal DAILY lisinopril 10 mg PO DAILY pantoprazole 40 mg PO DAILY phentermine 30 mg PO DAILY [Vitamin A acetate 3,000 mcg PO DAILY] zinc gluconate 10 mg PO DAILY HPI Comments Details: This?is a?48?yo F who is s/p LSG 05/14/2021. Weight loss of 6.4lbs since last OV. No complaints of nausea, emesis, abdominal pain or reflux, or constipation. Present meal plan includes: 7am breakfast- 2 eggs, can add a little avocado 12pm- protein water 4:30pm- dinner, 4oz protein (eat meat first, pt was eating salad first but not finishing protein), up to 4oz salad/veg 8pm- Vietnamese yogurt, protein bar, or [employer] chips Exercise: walking 1 hour daily Have you been diagnosed with reflux (GERD)? Score 0-5: 0=no symptoms, 1=noticeable but not bothersome (slight or occasional), 2=noticeable, bothersome but not daily, 3=bothersome and daily, 4=affects daily activities, 5=incapacitating, unable to do daily activities How bad is the heartburn: 0 Heartburn when lying down: 0 Heartburn when standing up: 0 Heartburn after meals: 0 Does heartburn change your diet: 0 Does heartburn wake you up from sleep: 0 Do you have difficulty swallowin Do you have pain with swallowin If you take medication for reflux, does this affect your daily life: 0 Total score: 0 [facility] Medical History (Updated 05/27/22 @ 09:30 by Cora Quezada Pablo) Hx of nephrolithotomy with removal of calculi Steatosis, liver GERD (gastroesophageal reflux disease) PONV (postoperative nausea and vomiting) BMI 31.0-31.9,adult BMI 33.0-33.9,adult BMI 35.0-35.9,adult H. pylori infection Asthma BMI 36.0-36.9,adult Preoperative examination History of cerebrovascular accident (CVA) in adulthood Hypothyroidism Hypercholesterolemia HTN (hypertension) Depression History of uterine cancer History of breast cancer Surgical History S/P laparoscopic sleeve gastrectomy History of total abdominal hysterectomy History of tubal ligation Hx of breast surgery Hx of colonoscopy History of endoscopy Family History Mother Hypertension Thyroid condition Father Diabetes Hypertension Mental and behavioral problem Heart problem Sister No problems noted. Sister No problems noted. Sister No problems noted. Sister No problems noted. Sister No problems noted. Sister No problems noted. Brother No problems noted. Brother No problems noted. Brother No problems noted. Brother No problems noted. Brother No problems noted. Brother No problems noted. Brother No problems noted. Brother No problems noted. Brother No problems noted. Brother No problems noted. Brother No problems noted. Son Asthma Son Asthma Daughter Thyroid condition Daughter No problems noted. Social History Are you a primary critical care transport nurse to a significant other at home: No Do you presently have visiting nurse or other home services: No Alcohol intake: former Patient Tobacco Use Status: Current everyday Tobacco user Tobacco use type: Smokeless Tobacco Cigarettes Per Day: 1 Years Smoked: 26 e-Cigarette/Vaping Use: Currently Using service: No Current occupational status: employed Assessment & Plan Assessment & Plan (1) Obesity: Code(s): E66.9 - Obesity, unspecified Category: Medical (2) S/P laparoscopic sleeve gastrectomy: Comment: 05/14/21 Code(s): Z98.84 - Bariatric surgery status Category: Medical Plan Pt commits to sending BP measurements and checking daily. She got a new phone and did not have my number but reports she continues to check BP daily and follow parameters for phentermine dosing. Will refill rx. RTC 3 mo for in person visit for weight check and BP check. Medications: New vitamin A palmitate 3,000 mcg PO DAILY 90 tabs 1RF Refilled phentermine must administer 2 hours after breakfast 30 mg PO DAILY 30 caps 0RF
--- OUTSIDE RECORDS SUMMARY | 2024-10-06 09:37 | XMS_ITS ---
Author Name [facility] Organization Unknown Care Team Organization Name Specialty Phone Email Start Date End Da te [facility] SUNI KIMBROUGH Primary Care [email or web address] 11/13/2022 4 [facility] Joaquina Lassiter Primary Care 01/14/2022 4
--- OUTSIDE RECORDS SUMMARY | 2024-10-06 09:37 | XMS_ITS | Clinical Summary ---
Author Organization [employer] Address [address] [place] [address] [address] [place] [address] Care Team Providers Care Retail Pricing Coordinator Name Role Phone Unavailable Primary Care Provider Unavailabl e Social History Tobacco Use Types Packs/Day Years [...] Panel 1973 SDOH Screening 1973 Sigmoidoscopy 1973 Disability Screening 1973 Alcohol/Substance Use Screening 1985 Tobacco Screening 1985 Family Planning (PISQ) 1988 Hepatitis C Screening 11/10/1991 DTaP/Tdap/Td Vaccines (1 - Tdap) 1992 Hepatitis B Vaccines (1 of 3 - 19+ 3-dose series) 1992 Pneumococcal Vaccine: 50+ Ye ars (1 of 2 - PCV) 1992 Pap Smear 1994 Cervical Cancer Screening 11/10/2003 HPV/Cotest 11/10/2003 COVID-19 Vaccine (1 - 2023-2 5 season) 2023 Zoster Vaccines (1 of 2) 11/10/2023 Influenza Vaccine (#1) 2024 RSV Patients and Pa tients Aged 60 [...] [facility] [place] [address]
--- OUTSIDE RECORDS SUMMARY | 2024-10-06 09:37 | XMS_ITS | Clinical Summary ---
Author Organization [facility] Address [address] [place] [phone] Phone Care Team Providers Care Teenage Babysitter Name Role Phone Pcp, Unknown Primary Care Provider Unavailabl e Allergies Active Allergy Reactions Criticality Noted Date Comments Aspirin 02/18/2022 Penicillins 02/18/2022 Medications albuterol 90 mcg/actuation inhaler Inhale 2 puffs into the lungs every 6 (six) hours as needed for wheezing. Active lisinopril (PRINIVIL,ZESTR IL) 10 MG tablet Take 10 mg by mouth daily. Active hydrOXYzine (ATARAX) 25 MG tablet Take 25 mg by mouth 3 (three) times a day as needed for anxiety. Per pcp note pt states she doesn't take any medicines Active traZODone (DESYREL) 50 MG tablet Take 50 mg by mouth nightly at bedtime. Per pcp note pt reports she doesn't take any medicines Active fluticasone propionate (FLOVENT HFA) 110 mcg/actuation inhaler Inhale into the lungs 2 (two) times a day. Per pcp note pt reports she doesn't take any medications Active omeprazole (PRILOSEC) 20 MG capsule Take 20 mg by mouth daily. Per pcp note pt reports she doesn't take any medications Active ibuprofen (ADVIL,MOTRIN) 600 MG tablet Take 1 tablet (600 mg total) by mouth every 8 (eight) hours as needed for pain (specific location in comments). 21 tablet 2 Active phenazopyridine (PYRIDIUM) 200 MG tablet Take 1 tablet (200 mg total) by mouth 3 (three) times a day as needed for pain (specific location in comments). 10 tablet 2 Active sulfamethoxazol e-trimethoprim (BACTRIM DS) 800-160 mg per tablet Take 1 tablet (160 mg of trimethoprim total) by mouth 2 (two) times a day. 2 tablet 2 Active traMADoL (ULTRAM) 50 mg tablet Take 1 tablet (50 mg total) by mouth every 6 (six) hours as needed for pain (specific location in comments). 10 tablet 2 Active Social History Tobacco Use Types Packs/Day Years Used Date Smoking Tobacco: Every Day Cigarettes Smokeless Tobacco: Never Tobacco Cessation:Ready to Q uit: Not Asked; Counseling Given: Not Answered Alcohol Use Standard Drinks/Week Comments Never 0 (1 standard drink = 0.6 oz pure alcohol) sober 16 plus years per pcp records Education Answer Date Recorded Are you interested in more education? Not on jerri e 07/05/2022 Are you concerned about learning? Not on file 07/05/2022 No 07/05/2022 No 07/05/2022 Digital Access Answer Date Recorded No 08/03/2022 No 08/03/2022 No 08/03/2022 Reliable internet access at home? Not on file 08/03/2022 Device with a working camera? Not on file Comments No Sex and Gender Information Value Date Recorded Sex Assigned at Not on file Legal Sex Female 11:19 AM EST Gender Identity Not on file Sexual Orientation Not on file Last Filed Vital Signs Vital Sign Reading Time Taken Comments Blood Pressure 151/93 02/19/2022 3:00 PM EST Pulse 82 02/19/2022 3:00 PM EST Temperature 36.4 C (97.5 F) 02/19/2022 2:14 PM EST Respiratory Rate 23 02/19/2022 3:00 PM EST Oxygen Saturation 97% 02/19/2022 3:00 PM EST Inhaled Oxygen Concentration - - Weight 82.1 kg (181 lb) 02/18/2022 10:19 AM EST Height 170.2 cm (5' 7 ) 02/18/2022 10:19 AM EST Body Mass Index 28.35 02/18/2022 10:19 AM EST Plan of Treatment Health Maintenance Due Date Last Done Comments Adult Td,Tdap Booster 1973 CREATININE LEVEL 1973 POTASSIUM LEVEL 1973 DEPRESSION SCREENING 1985 SMOKING Hx and SMOKELESS TOB ACCO SCREENING 1986 HEPATITIS C SCREENING 11/10/1991 HIV ONE-TIME SCREENING (18-6 5 YEARS) 11/10/1991 PNEUMOCOCCAL VACCINES (50+ y ears) (1 of 2 - PCV) 1992 PAP SMEAR 1994 SCREENING FOR DIABETES 2008 MAMMOGRAM 2013 COLOGUARD 2018 COLONOSCOPY 2018 COLORECTAL CANCER SCREENING 2018 FIT TEST 2018 FOBT 2018 SIGMOIDOSCOPY 2018 VIRTUAL COLONOSCOPY 2018 COVID-19 VACCINE (2023-2 5 season) 2023 ZOSTER VACCINES (1 of 2) 11/10/2023 LIPID PANEL 08/29/2026 08/29/2021 HEPATITIS A VACCINES Aged Out No long er eligible based on patient's age to complete this topic HIB VACCINES Aged Out No longer eligi ble based on patient's age to complete this topic MENINGOCOCCAL VACCINES (ACWY) Aged Out No longer eligible based on patient's age to complete this topic MENINGOCOCCAL VACCINES (B) Aged Out N o longer eligible based on patient's age to complete this topic Medical Devices Implanted Type Area Investment Advisor Device Identifier Shelf Expiration Date Model / Serial / Lot Stent Ureteral 6fr 22 To 30cm Stretch Coated Vesna - [id number] Implanted:Qty : 1 on 02/19/2022 by Keagan Georges MD at [facility] Left: Ureter [employer] GOPI [id number] 11/19/2024 [id number] / / [id number] Insurance [facility] [employer] [facility] [employer] ALLANCE [place]CO [place] [id number] [facility] ALLANCE ACO E[place] [id number] [facility] A[facility] [place] [id number] [place] [id number] [place] [id number] Care Teams Teenage Babysitter Relationship Specialty Start Date End Date Pcp, Unknown PCP - General 02/17/22 Additional Source Comments The information contained in this document represents components of the legal health record. It is not the complete legal health record.[facility]
--- OUTSIDE RECORDS SUMMARY | 2024-10-06 09:37 | XMS_ITS | Clinical Summary ---
Author Organization [address] Address [address] [place] [phone] Phone Care Team Providers Care Vice President Of Academic Affairs Name Role Phone Honorio Torres MD Primary [...] Problem Noted Date Diagnosed Date Breast cancer ([facility] V24, [facility] V28) 024 HTN (hypertension) 02/23/2024 Constipation 09/04/2022 Bipolar disorder ([facility] V24, [facility] V28) 08/08 Mild persistent asthma without complication 08/08 Schizophrenia ([facility] V24, [facility] V28) 023 Seasonal allergic rhinitis 09/04/2022 Obesity (BMI 30.0-34.9) 08/10/2020 Depression 04/08/2019 Overview (02/23/2024): Admitted suicidal ideation 03/28 History of alcohol abuse 06/30/2018 Overview (02/23/2024): For 15 yrs, sober 16 yrs History of substance abuse ([facility] V24, [facility] V28) 06/30/2018 Overview (02/23/2024): Cocaine, 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 Nephrolithiasis 01/25/2016 Hypercholesteremia 12/28/2015 Seizure disorder ([facility] V24, [facility] V28) 12/08 Cyst of [...] HTN (hypertension) DX:HTN (hyper tension) Breast cancer ([facility] V24, [facility] V28) DX:Breast cancer (HCC) History of drug abuse in rem ission ([facility] V24, [facility] V28) DX:History of drug abuse in remission ([facility]); COMMENT: cocaine, heroin History of alcohol use DX:Histor y of alcohol use Seizure disorder ([facility] V2 4, [facility] V28) DX:Seizure disorder ([facility]) GERD (gastroesophageal reflux disease) DX:GERD (gastroesophageal reflux disease) History of substance abuse ( [facility] V24, [facility] V28) 06/30/2018 DX:History of substance abus e ([facility]); COMMENT: Cocaine, heroin No IVDU Sober [...] mentia Breast cancer Sister x 6 HTN, [place] (in 40 s), T1DM Relation Name Status [...] Years (1 of 2 - PCV) 1992 Zoster Vaccines (1 of 2) 1992 Cervical Cancer Screening: P ap Smear 1994 Social Influencers of Health Screening 02/04/2022 Hypertension/CHF/CAD Annual BMP Blood Test 12/25/2023 12/24/2022 Depression Screening 03/09/2024 Influenza Vaccine (#1) 2024 Breast Cancer Screening 04/13/2025 04/13/19 24, [...] does not persist on the additional views. No mass or architectural distortion is apparent. Parenchymal pattern is similar to prior exams. Ultrasound performed as a precaution in the upper outer breast without a solid or cystic lesion identified. Impression: No suspicious finding on callback imaging. Routine annual screening mammography recommended. BI-RADS 1-negative Procedure [...] mammography recommended. BI-RADS 1-negative Honorio Torres MD IMG BI PROCEDURE S Final Result * Annual BMP Blood Test (12/24/2022) [facility] Annual BMP Blood Test abstracted [facility] Provider HEALTH MAINTENANCE Final Result * (ABNORMAL) Lipid panel (12/24/2022) [facility] LDL/HDL Ratio 4 0 - 4 Triglycerides 105 0 - 150 mg/dL Cholesterol 193 0 - 200 mg/dL HDL 49 >=40 mg/dL LDL Cholesterol 123(A) 0 - 100 mg/dL Blood Venous blood specimen / Unknown Historical Provider LAB BLOOD ORDERABLES Claire l Result * HIV Screening (09/04/2022) [facility] HIV Screening abstracted Historical Provider HEALTH MAINTENANCE Final Result * Hepatitis C Screening (09/04/2022) Hepatitis C Screening abstracted us Historical Provider HEALTH MAINTENANCE Final Result * Colonoscopy (08/12/2018) Colonoscopy no interpretation , abstracted Anatomical Region Laterality Modality Other us Historical Provider HEALTH MAINTENANCE Final Result from Last 3 Months or Most Recently Relevant to Health Maintenance [place] [address] [address] [place] [address] HEALTH PLAN Care Teams Vice President Of Academic Affairs Relationship Specialty Start Date End Date Honorio Torres MD [address] [place] [id number] PCP - General 06/11/22
--- OUTSIDE RECORDS SUMMARY | 2024-10-06 09:38 | XMS_ITS | Clinical Summary ---
Author Organization [facility] Address [address] [address] [place] [address] Care Team Providers Care Clinical Project Coordinator Name Role Phone Unavailable Primary Care Provider Unavailabl e Source Comments PLEASE NOTE, if this patient is a minor, it may be UNLAWFUL to discuss sensitive information that is contained in these records (such as FAMILY PLANNING, MENTAL HEALTH or SUBSTANCE ABUSE) with the minor patient's parent or other person without the patient's specific authorization.[facility] Medications lisinopril (PRINIVIL,ZESTRI L) 30 mg tablet Take 1 Tab by mouth once daily. 90 Tab 0 11/17/2012 Active acetaminophen (TYLENOL) 500 mg tablet Take 1 Tablet by mouth every 6 (six) hours as needed for pain 20 Tablet 12/04/2020 Active Social History Tobacco Use Types Packs/Day Years Used Date Smoking Tobacco: Never Assessed Social Connections Answer Date Recorded Social Connections and Isolation 0 02/19/2021 Financial Resource Strain Answer Date R ecorded Financial Resource Strain 0 2020 Stress Answer Date Recorded Stress 0 02/19/2021 Physical Activity Answer Date Recorded Physical Activity 0 02/19/2021 Food Insecurity Answer Date Recorded Food 0 02/19/2021 Transportation Needs Answer Date Record ed Transportation 0 02/19/2021 Housing Stability Answer Date Recorded Housing 0 02/19/2021 Safety and Environment Answer Date Tian rded Safety 0 02/19/2021 Utilities Answer Date Recorded Utilities 0 02/19/2021 Employment Answer Date Recorded Employment 0 02/19/2021 Comments Unknown Sex and Gender Information Value Date Recorded Sex Assigned at Not on file Legal Sex Female 7:16 AM PDT Gender Identity Not on file Sexual Orientation Not on file Plan of Treatment Not on file Insurance [place]
[2024-10-06 09:40] VITALS: BP 143/81; PULSE 77; TEMP 36.2; O2SAT 96; BMI 31.6
== END 2024-10-06 10:04 | disposition home or self-care (01) ==
LOC: HO.HBS 09:22
PROVIDERS: Visit Provider Physician Assistant Surgical
DX: E66.9 Obesity, unspecified (principal); Z68.31 Body mass index [BMI] 31.0-31.9, adult; Z90.3 Acquired absence of stomach [part of]; Z98.84 Bariatric surgery status
CPT/HCPCS: 99213

== ENCOUNTER → 2024-10-06 09:21 | Outpatient (BNVA) | payer OTHER, SELFPAY | PROVIDERS: Visit Provider Physician Assistant Surgical | DX: E66.9 Obesity, unspecified (principal); Z68.31 Body mass index [BMI] 31.0-31.9, adult; Z90.3 Acquired absence of stomach [part of] | CPT/HCPCS: 99212 ==

== ENCOUNTER 2025-01-11 11:35 | Outpatient (AMB) | payer OTHER, SELFPAY ==
--- NOTE | 2025-01-11 11:41 | MHC.OFFVISWM ---
VS Expanded 01/11/25 11:47 BP 130/86 Blood Pressure Location Rt brachial Blood Pressure Position Sitting Pulse 97 Pulse Source Pulse Oximeter Temp 97.9 F Temperature Source Temporal Artery Scan Pulse Oximetry 97 Oxygen Delivery Method Room Air Height 5 ft 6 in Weight 190 lb 9.6 oz BMI 30.8 Body Fat % 38.0 Body Fat Mass 72.4 Fat Free Mass 118.2 Visceral Fat Rating 9.0 Body Water % 44.2 Body Water Mass 84.2 Muscle Mass/Score 112.2 Basal Metabolic Rate/Score 1,614 Intake Visit Reasons: (OV) PO LSG 05/14/21 Allergies aspirin (ASA) Allergy (Unknown, Verified 01/11/25 11:48) DIFF BREATHING Penicillins (PENICILLINS) Allergy (Verified 01/11/25 11:48) DIFF BREATHING Medication List - Last Reconciled 01/11/25 by NI Tovar albuterol sulfate 90 mcg/actuation 2 puffs inhalation Q4H PRN cholecalciferol (vitamin D3) 125 mcg PO DAILY clotrimazole 1% 1 appl topical BID cyclobenzaprine 10 mg PO TID PRN Held on 05/15/21. Instructions: until discussed with Dr Lunsford fluticasone propionate 50 mcg/actuation 2 sprays intranasal DAILY lisinopril 10 mg PO DAILY pantoprazole 40 mg PO DAILY phentermine 30 mg PO DAILY vitamin A palmitate 3,000 mcg PO DAILY zinc gluconate 10 mg PO DAILY HPI Comments Details: This is a 48 yo F who is s/p LSG 05/14/2021. Weight loss of 5lbs since last OV 3mo ago. No complaints of nausea, emesis, abdominal pain or reflux, or constipation. She reports she recently had a partner who had known hepatitis C from IVDA. Present meal plan includes: 7am breakfast- 2 eggs, can add a little avocado 12pm- Premier protein shake 4:30pm- dinner, 4oz protein (eat meat first, pt was eating salad first but not finishing protein), up to 4oz salad/veg 8pm- Vietnamese yogurt, protein bar, or Quest chips- doesn't always have this, may have fruit instead feels she is drinking too much coffee- adds cream stopped soda, bread, rice Exercise: walking 1 hour daily Pt notes issues of excess skin of abdomen. She has experienced rashes in skin folds, which are itchy and painful. She has tried creams to prevent this, however this did not completely resolve the issue. She asks for a refill today. She notes unpleasant odor due to moisture collecting and has to wash more frequently. [facility] Medical History (Updated 05/27/22 @ 09:30 by VINOD Solorzano) Hx of nephrolithotomy with removal of calculi Steatosis, liver GERD (gastroesophageal reflux disease) PONV (postoperative nausea and vomiting) BMI 31.0-31.9,adult BMI 33.0-33.9,adult BMI 35.0-35.9,adult H. pylori infection Asthma BMI 36.0-36.9,adult Preoperative examination History of cerebrovascular accident (CVA) in adulthood Hypothyroidism Hypercholesterolemia HTN (hypertension) Depression History of uterine cancer History of breast cancer Surgical History S/P laparoscopic sleeve gastrectomy History of total abdominal hysterectomy History of tubal ligation Hx of breast surgery Hx of colonoscopy History of endoscopy Family History Mother Hypertension Thyroid condition Father Diabetes Hypertension Mental and behavioral problem Heart problem Sister No problems noted. Sister No problems noted. Sister No problems noted. Sister No problems noted. Sister No problems noted. Sister No problems noted. Brother No problems noted. Brother No problems noted. Brother No problems noted. Brother No problems noted. Brother No problems noted. Brother No problems noted. Brother No problems noted. Brother No problems noted. Brother No problems noted. Brother No problems noted. Brother No problems noted. Son Asthma Son Asthma Daughter Thyroid condition Daughter No problems noted. Social History Are you a primary rental boats caretaker to a significant other at home: No Do you presently have visiting nurse or other home services: No Alcohol intake: former Patient Tobacco Use Status: Current everyday Tobacco user Tobacco use type: Smokeless Tobacco Cigarettes Per Day: 1 Years Smoked: 26 e-Cigarette/Vaping Use: Currently Using service: No Current occupational status: employed Physical Exam Vital Signs: Last Vital Signs Temp 97.9 F 01/11/25 11:47 Pulse 97 01/11/25 11:47 BP 130/86 01/11/25 11:47 Pulse Ox 97 01/11/25 11:47 Oxygen Delivery Method Room Air 01/11/25 11:47 BMI result Body Mass Index 30.8 Assessment & Plan Assessment & Plan (1) Obesity: Code(s): E66.9 - Obesity, unspecified Category: Medical (2) S/P laparoscopic sleeve gastrectomy: Comment: 05/14/21 Code(s): Z98.84 - Bariatric surgery status Category: Surgical (3) Excess skin: Code(s): L98.7 - Excessive and redundant skin and subcutaneous tissue Category: Medical Plan Pt to continue checking BP daily on phentermine. I reminded her to text me measurements. She has been on for 6 months so will discontinue after this month. Clotrimazole ointment refilled per pt request. I will speak to lab regarding STI testing. RTC in May for annual. Pt to text me when finishing phentermine and I will send rx to [facility]. Medications: Refilled clotrimazole 1% 1 appl topical BID 45 grams 3RF
[2025-01-11 11:47] VITALS: BP 130/86; PULSE 97; TEMP 36.6; O2SAT 97; BMI 30.8
--- OUTSIDE RECORDS SUMMARY | 2025-01-11 14:16 | XMS_ITS | Clinical Summary ---
Author Organization [employer] Address [address] [place] [address] [address] [place] [address] Care Team Providers Care Oral Surgeon Name Role Phone Unavailable Primary Care Provider [...] 1994 Cervical Cancer Screening 11/10/2003 HPV/Cotest 11/10/2003 Zoster Vaccines (1 of 2) 11/10/2023 COVID-19 Vaccine (1 - 2023-2 5 season) 2024 Influenza Vaccine (#1) 2024 RSV Patients and [...] patient's age to complete this topic Insurance [facility] (O)
--- OUTSIDE RECORDS SUMMARY | 2025-01-11 14:16 | XMS_ITS | Clinical Summary ---
Author Organization [facility] Address [address] [place] [phone] Phone Care Team Providers Care Rangeland Management Specialist Name Role Phone Pcp, Unknown Primary Care [...] FOBT 2018 SIGMOIDOSCOPY 2018 VIRTUAL COLONOSCOPY 2018 ZOSTER VACCINES (1 of 2) 11/10/2023 INFLUENZA VACCINE (#1) 2024 COVID-19 VACCINE (1 - 2024-2 6 season) 2024 LIPID PANEL 08/29/2026 08/29/2021 RSV VACCINE (1 - 1-dose 75+ series) 2048 HEPATITIS A VACCINES Aged Out No long [...] this topic Medical Devices Implanted Type Area Education Officer Device Identifier Shelf Expiration Date Model / Serial / Lot Stent Ureteral 6fr 22 To 30cm Stretch Coated Vesna - [id number] Implanted:Qty : 1 on 02/19/2022 by Keagan Georges MD at [facility] Left: Ureter [employer] ([employer]) [id number] 11/19/2024 [id number] / / [id number] Insurance [facility] [place] [address] [place] [address] [employer] [facility] [employer] [place] [id number] [facility] ipadio [employer] [place] [id number] [facility] [employer] [place] [id number] [place] [employer] Care Teams Rangeland Management Specialist Relationship Specialty Start Date End Date Pcp, Unknown PCP - General 02/17/22 Additional Source Comments The information contained in this document represents components of the legal health record. It is not the complete legal health record.[facility]
--- OUTSIDE RECORDS SUMMARY | 2025-01-11 14:16 | XMS_ITS | Encounter Summary ---
Author Organization [facility] Address [address] [place] [phone] Phone Care Team Providers Care Health Informatics Advisor Name Role Phone Pcp, Unknown Primary Care Provider Unavailabl e Encounter Details Date Type Department Care Team (Late st Contact Info) Description 02/19/2022 Procedure Pass OR Admitting Dept - Virtual Department [address] [place] [id number] Social History Tobacco Use Types Packs/Day Years Used Date Smoking Tobacco: Every Day Cigarettes Smokeless Tobacco: Never Alcohol Use Standard Drinks/Week Comments Never 0 (1 standard drink = 0.6 oz pure alcohol) sober 16 plus years per pcp records Comments No Sex and Gender Information Value Date Recorded Sex Assigned at Not on file Legal Sex Female 11:19 AM EST Gender Identity Not on file Sexual Orientation Not on file documented as of this encounter Plan of Treatment Not on file documented as of this encounter Visit Diagnoses Not on filedocumented in this encounter Care Teams Health Informatics Advisor Relationship Specialty Start Date End Date Pcp, Unknown PCP - General 02/17/22 documented as of this encounter Additional Source Comments The information contained in this document represents components of the legal health record. It is not the complete legal health record.[facility]
--- OUTSIDE RECORDS SUMMARY | 2025-01-11 14:16 | XMS_ITS | Clinical Summary ---
Author Organization [address] Address [address] [place] [phone] Phone Care Team Providers Care Outsole Compressor Name Role Phone Honorio Torres MD Primary [...] Problem Noted Date Diagnosed Date Breast cancer ([facility] V24, [facility] V28) 024 HTN (hypertension) 02/23/2024 Constipation 09/04/2022 Bipolar disorder ([facility] V24, [facility] V28) 08/08 Mild persistent asthma without complication 08/08 Schizophrenia ([facility] V24, [facility] V28) 023 Seasonal allergic rhinitis 09/04/2022 Obesity (BMI 30.0-34.9) 08/10/2020 Depression 04/08/2019 Overview (02/23/2024): Admitted suicidal ideation 03/28 History of alcohol abuse 06/30/2018 Overview (02/23/2024): For 15 yrs, sober 16 yrs History of substance abuse ([facility] V24, [facility] V28) 06/30/2018 Overview (02/23/2024): Cocaine, 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 Nephrolithiasis 01/25/2016 Hypercholesteremia 12/28/2015 Seizure disorder ([facility] V24, [facility] V28) 12/08 Cyst of ovary 07/08/2015 Anxiety 01/03/2015 Immunizations Immunization Administration Dates Next Due MMR, measles mumps [...] HTN (hypertension) DX:HTN (hyper tension) Breast cancer ([facility] V24, [facility] V28) DX:Breast cancer (HCC) History of drug abuse in rem ission ([facility] V24, [facility] V28) DX:History of drug abuse in remission ([facility]); COMMENT: cocaine, heroin History of alcohol use DX:Histor y of alcohol use Seizure disorder ([facility] V2 4, [facility] V28) DX:Seizure disorder ([facility]) GERD (gastroesophageal reflux disease) DX:GERD (gastroesophageal reflux disease) History of substance abuse ( [facility] V24, [facility] V28) 06/30/2018 DX:History [...] mentia Breast cancer Sister x 6 HTN, NC (in 40 s), T1DM Relation Name Status [...] 1994 Social Influencers of Health Screening 02/04/2022 RSV Immunization Adult Patients (1 - Risk 50-74 years 1-dose series) 11/10/2023 Hypertension/CHF/CAD Annual BMP Blood Test 12/25/2023 12/24/2022 [...] mammography recommended. BI-RADS 1-negative Honorio Torres MD [facility] BI PROCEDURE S Final Result * Annual BMP Blood Test (12/24/2022) [facility] Annual BMP Blood Test abstracted Result [facility] Provider [facility] Final Result * (ABNORMAL) Lipid panel (12/24/2022) [facility] LDL/HDL Ratio 4 0 - 4 Triglycerides 105 0 - 150 mg/dL Cholesterol 193 0 - 200 mg/dL HDL 49 >=40 mg/dL LDL Cholesterol 123(A) 0 - 100 mg/dL Blood Venous blood specimen / Unknown Result [facility] Provider LAB BLOOD ORDERABLES Claire l Result * HIV Screening (09/04/2022) [facility] HIV Screening abstracted us Historical Provider HEALTH MAINTENANCE Final Result * Hepatitis C Screening (09/04/2022) Hepatitis C Screening abstracted Historical Provider HEALTH MAINTENANCE Final Result * Colonoscopy (08/12/2018) Colonoscopy no interpretation , abstracted Anatomical Region Laterality Modality Other Historical Provider HEALTH MAINTENANCE Final Result from Last 3 Months or Most Recently Relevant to Health Maintenance Insurance [facility] Care Teams Outsole Compressor Relationship Specialty Start Date End Date Honorio Torres MD [address] [place] [id number] PCP - General 06/11/22
== END 2025-01-11 12:29 | disposition home or self-care (01) ==
LOC: HO.HBS 11:36
PROVIDERS: Visit Provider Physician Assistant Surgical
DX: E66.9 Obesity, unspecified (principal); Z68.30 Body mass index [BMI] 30.0-30.9, adult; L98.7 Excessive and redundant skin and subcutaneous tissue; Z90.3 Acquired absence of stomach [part of]; Z98.84 Bariatric surgery status
CPT/HCPCS: 99213

== ENCOUNTER → 2025-01-11 11:35 | Outpatient (BNVA) | payer OTHER, SELFPAY | PROVIDERS: Visit Provider Physician Assistant Surgical | DX: L98.7 Excessive and redundant skin and subcutaneous tissue (principal); E66.9 Obesity, unspecified; Z98.84 Bariatric surgery status | CPT/HCPCS: 99212 ==